=== PATIENT | male | born 1935 | race Caucasian/White ===

== ENCOUNTER 2016-12-15 18:55 | Emergency (ER) | payer MEDICARE ==
[~2016-12-15] VITALS: Ht 162.6 cm; Wt 85.0 kg
[~2016-12-15 18:55] MED LIST: ASPI325T PO; CETI10 PO; CHLO10CA17 PO; CIPR-9 PO; CIPR500T4 PO; DIPH2%T PO; FISH100020 PO; FLAG500T PO; FLUT50SP EACH NARE; GLIP5 PO; HYDR-3533 PO; HYDR12.56 PO; HYDR1CRE TOP; IBUP600T26 PO; LISI40TA PO; METO25 PO; METR-1 PO; MONT10TA2 PO; SIMV80TA PO; SLO-500T2 PO; STOO100C PO; TYLETAB34 PO; VIAG100T PO; VITA500T10 PO
[2016-12-15 18:57] VITALS: BP 167/83; PULSE 90; RESP 20; TEMP 97.3; O2SAT 95
[2016-12-15] MEDS ORDERED: DOXY100C PO (21:09)
[2016-12-15] MEDS ORDERED: ACYC800T PO (21:09)
[2016-12-15] MEDS ORDERED: ACYCLOVIR 800 MG TAB PO ONE (21:15)
[2016-12-15] MEDS ORDERED: DOXYCYCLINE HYCLATE 100 MG CAP PO ONE (21:15)
--- NOTE | 2016-12-15 21:15 | PD ---
HPI Chief Complaint: Bite or Sting Time Seen by Provider: 21:10 Travel History International Travel<30 days: No Contact w/Intl Traveler<30days: No Traveled to known affect area: No History of Present Illness HPI 81-year-old white male presents to emergency department requesting evaluation of painful rash to his right face which she noticed earlier today. He states that he was visiting a friend had fallen asleep. He states that he had woken up pain in his right face. He states that it felt as if he was hit with a pipe. He did notice a spider on his lap. He feels that he may have been bitten by the insect. He has noticed a rash on his right anterior forehead as well as the right taoist region. There is a minimal amount of swelling to his right cheek. He took 50 mg's of Benadryl before coming in. This had occurred several hours ago. He denies any shortness of breath or wheezing. No glossal edema. He denies ever having shingles shot or shingles. He denies any history of MRSA. PFSH Past Medical History Arthritis: No Asthma: No Blood Disorders: No Bipolar Disorder: Yes Anxiety: Yes Depression: No Heart Rhythm Problems: Yes (AFIB) Cancer: Yes (prostate cancer getting Lupron) Cardiac Catheterization: No Cardiovascular Problems: Yes High Cholesterol: Yes Chemotherapy: No Chest Pain: Yes Congestive Heart Failure: No COPD: No Cerebrovascular Accident: No Coronary Artery Disease: Yes Diabetes: Yes Diminished Hearing: No Diverticulitis: Yes Endocrine: No Gastrointestinal Disorders: Yes GERD: No Genitourinary: No Hiatal Hernia: No Hypertension: Yes Immune Disorder: No Kidney Stones: Yes Musculoskeletal: No Neurologic: No Psychiatric: Yes Reproductive: No Respiratory: No Migraines: No Radiation Therapy: No Renal Failure: No Seizures: No Sickle Cell Disease: No Triglycerides - High: Yes Tetanus Vaccination: < 5 Years Past Surgical History Abdominal Surgery: No AICD: No Arteriovenous Shunt: No Cardiac Surgery: No Coronary Artery Bypass Graft: No Ear Surgery: No Endocrine Surgery: No Eye Surgery: No Genitourinary Surgery: Yes (KIDNEY STONES (1990)) Insulin Pump: No Joint Replacement: No Oral Surgery: No Pacemaker: No Thoracic Surgery: No Other Surgery: Yes (PHLEBECTOMY S/P THROMBOPHLEBITIS (1960), HEMORRHOIDECTOMY ( 1957)) Social History Alcohol Use: No Tobacco Use: No Substance Use: No Allergies-Medications (Allergen,Severity, Reaction): Coded Allergies: shellfish derived (Unverified Allergy, Severe, Anaphylaxis, 12/15/16) shrimp (Unverified Allergy, Severe, Swelling, 12/15/16) Reported Meds & Prescriptions Reported Meds & Active Scripts Active Tylenol-Codeine #3 (Acetaminophen-Codeine) 300-30 mg Tab 1-2 Tab PO Q6H PRN Flagyl (Metronidazole) 500 Mg Tab 500 Mg PO BID Cipro (Ciprofloxacin HCl) 500 Mg Tab 500 Mg PO BID Lortab 5-325 mg (Hydrocodone-Acetaminophen) 1 Tab 1 Tab PO Q4H PRN Z.0.iilgg974 Mg 500 Mg Tab 500 Mg PO BID Flagyl (Metronidazole) 500 Mg Tab 500 Mg PO TID Metoprolol Tartrate 25 Mg Tab 12.5 Mg PO Q12 30 Days Reported Z.0.zyrtec 10 Mg Ta1 10 Mg Tab 5 Mg PO DAILY Z.0.aspirin 325 Mg32 325 Mg Tab 325 Mg PO DAILY Z.0.eamwzpkjdfm05 Mg 80 Mg Tab 40 Mg PO HS Z.0.chdayy752 Mg 100 Mg Tab 100 Mg PO DIRECTED PRN Z.0.slo-Qnksbj465 Mg 500 Mg Tab 500 Mg PO DAILY Fluticasone Pr50 Mc1 50 Mcg Spr 2 [place] EACH NARE DAILY Ibuprofen 600 Mg Tab 600 Mg PO TID PRN Glipizide 5 Mg Tab 2.5 Mg PO BID Hydrocortisone (Hydrocortisone (Topical)) 1 % Cre 1 Applic TOP BID PRN Hydrochlorothiazide 12.5 Mg Tab 12.5 Mg PO DAILY Fish Oil ([place]-3 Fatty Acids) 1,000 Mg Cap 3,000 Mg PO DAILY Z.0.fgomjhpxv56 Mg 10 Mg Tab 10 Mg PO HS Jkqhpjy03 Mg 10 Mg Cap 10 Mg PO BID Z.0.wjfvna413 Mg 100 Mg Cap 100 Mg PO BID Z.0.diphenhydramine2 25 Mg Cap 25 Mg PO HS Z.0.vitamin C500 Mg 500 Mg Tab 500 Mg PO DAILY Z.0.yuwkqkak80 Mg 40 Mg Tab 40 Mg PO DAILY Review of Systems Except as stated in HPI: all other systems reviewed are Neg Physical Exam Narrative GENERAL: Well-developed, well-nourished in no acute distress. Nontoxic appearing. HEAD: Normocephalic, patient has a mild area of erythema to the anterior right forehead. There is no vesicles or blisters. There is also another area to his right cheek and right temporal region. These also are mildly erythematous but no vesicular or blisters. There is no fluctuance or pointing.. EYES: Pupils equal round and reactive. Extraocular motions intact. No scleral icterus. No injection or drainage. ENT: TMs clear without erythema. The external auditory canals clear. Nose: clear . Posterior pharynx is pink and moist. No tonsillar edema or exudate. Uvula midline. Airway patent. NECK: Trachea midline.Supple, nontender, moves head freely. No central bony tenderness or spasm. CARDIOVASCULAR: Regular rate and rhythm without murmurs, gallops, or rubs. RESPIRATORY: Clear to auscultation. Breath sounds equal bilaterally. No wheezes , rales, or rhonchi. GASTROINTESTINAL: Abdomen soft, non-tender, nondistended. No hepato-splenomegaly , or palpable masses. No guarding. EXTREMITIES: No clubbing, cyanosis, or edema. No joint tenderness, effusion, or edema noted. BACK: Nontender without deformity or crepitance. No flank tenderness. Neuro: Patient is able to smile and wrinkle his forehead. There is no facial droop. Cranial nerves grossly intact. There is no focal sensory or motor deficit identified. Data Data Last Documented VS Vital Signs Date Time Temp Pulse Resp B/P (MAP) Pulse Ox O2 Delivery O2 Flow Rate FiO2 12/15/16 18:57 97.3 90 20 167/83 (111) 95 Room Air [facility] Medical Decision Making Medical Screen Exam Complete: Yes Emergency Medical Condition: Yes Medical Record Reviewed: Yes Differential Diagnosis MDM: High Differential diagnoses: Abscess, folliculitis, cellulitis, shingles, insect bite Narrative Course I have had a lengthy discussion with the patient regarding my concern for potential early shingles. The patient is also concerned that this might be a insect bite and possible impending infection. I've agreed to treat him with doxycycline but also have given the patient acyclovir. Patient's given doxycycline 100 by mouth and acyclovir 800 [place]'s by mouth. He is instructed to [facility] 1[facility]2 days. This is facial rash Diagnosis Primary Impression: Facial rash Patient Instructions: General Instructions Additional Instructions: Rest. Continue local wound care. May apply cool compresses. Continue to take 25 mg of Benadryl every 6 hours. Monitor urine flow. Benadryl may cause a decrease in urine flow. If this occurs stop immediately. Acyclovir and doxycycline. Recheck with your doctor in the next 1-2 days. Return to the ER for any problems. Med/Other Pt SpecificInfo: Prescription(s) given Scripts Doxycycline Hyclate (Doxycycline Hyclate) 100 Mg Cap 100 MG PO BID for Infection, #14 CAP 0 Refills Prov: Indira Abad DO 12/15/16 Acyclovir (Acyclovir) 800 Mg Tab 800 MG PO 5 TIMES A DAY for Mgmt Viral Infection for 7 Days, TAB 0 Refills Prov: Indira Abad DO 12/15/16 Disposition: 01 DISCHARGE HOME Condition: Stable Aristides [place] Dec 15, 2016 21:15
== END 2016-12-15 21:45 | disposition home or self-care (01) ==
LOC: NEPK 18:55
DX: R21 Rash and other nonspecific skin eruption (principal)
CPT/HCPCS: 99284

== ENCOUNTER 2017-08-03 18:40 | Emergency (ER) | payer OTHER, MEDICARE ==
[~2017-08-03] VITALS: Ht 167.6 cm; Wt 82.0 kg
[~2017-08-03 18:40] MED LIST changes: +ACYC800T PO; -ASPI325T PO; -CETI10 PO; -CHLO10CA17 PO; -CIPR-9 PO; -CIPR500T4 PO; -DIPH2%T PO; +DOXY100C PO; -FISH100020 PO; -FLAG500T PO; -FLUT50SP EACH NARE; -GLIP5 PO; -HYDR-3533 PO; -HYDR12.56 PO; -HYDR1CRE TOP; -IBUP600T26 PO; -LISI40TA PO; -METO25 PO; -METR-1 PO; -MONT10TA2 PO; -SIMV80TA PO; -SLO-500T2 PO; -STOO100C PO; -TYLETAB34 PO; -VIAG100T PO; -VITA500T10 PO
[2017-08-03 19:18] VITALS: BP 151/80; PULSE 94; RESP 18; TEMP 97.6; O2SAT 97
--- NOTE | 2017-08-03 19:56 | PD ---
HPI Chief Complaint: Fall Time Seen by Provider: 19:44 Travel History International Travel<30 days: No Contact w/Intl Traveler<30days: No Traveled to known affect area: No History of Present Illness HPI This patient complains of rib pain. He tripped and fell at home at 1 PM. Duration 7 hours. Severity is moderate. Worse with movement of his torso. No alleviating factors. He hit his left lower rib cage on the tile floor. Denies head injury or head or neck pain. Takes an aspirin daily. PFSH Past Medical History Arthritis: No Asthma: No Blood Disorders: No Bipolar Disorder: Yes Anxiety: Yes Depression: No Heart Rhythm Problems: Yes (AFIB) Cancer: Yes (prostate cancer getting Lupron) Cardiac Catheterization: No Cardiovascular Problems: Yes High Cholesterol: Yes Chemotherapy: No Chest Pain: Yes Congestive Heart Failure: No COPD: No Cerebrovascular Accident: No Coronary Artery Disease: Yes Diabetes: Yes Patient Takes Glucophage: No Diminished Hearing: No Diverticulitis: Yes Endocrine: No Gastrointestinal Disorders: Yes GERD: No Genitourinary: No Headaches: No Hiatal Hernia: No Heparin Induced Thrombocytopen: No Hypertension: Yes Immune Disorder: No Implanted Vascular Access Dvce: No Kidney Stones: Yes Musculoskeletal: No Neurologic: No Psychiatric: Yes Reproductive: No Respiratory: No Migraines: No Radiation Therapy: No Renal Failure: No Seizures: No Sickle Cell Disease: No Triglycerides - High: Yes Tetanus Vaccination: > 5 Years Influenza Vaccination: No Past Surgical History Abdominal Surgery: No AICD: No Arteriovenous Shunt: No Cardiac Surgery: No Coronary Artery Bypass Graft: No Ear Surgery: No Endocrine Surgery: No Eye Surgery: No Genitourinary Surgery: Yes (KIDNEY STONES (1990)) Insulin Pump: No Joint Replacement: No Neurologic Surgery: No Oral Surgery: No Pacemaker: No Thoracic Surgery: No Other Surgery: Yes (PHLEBECTOMY S/P THROMBOPHLEBITIS (1960), HEMORRHOIDECTOMY ( 1956)) Social History Alcohol Use: No Tobacco Use: No Substance Use: No Allergies-Medications (Allergen,Severity, Reaction): Coded Allergies: shellfish derived (Unverified Allergy, Severe, Anaphylaxis, 08/03/17) shrimp (Unverified Allergy, Severe, Swelling, 08/03/17) Reported Meds & Prescriptions Reported Meds & Active Scripts Active Doxycycline Hyclate 100 Mg Cap 100 Mg PO BID Acyclovir 800 Mg Tab 800 Mg PO 5 TIMES A DAY 7 Days Review of Systems General / Constitutional: No: Fever Eyes: No: Visual changes HENT: No: Headaches Cardiovascular: Positive: Chest Pain or Discomfort Respiratory: No: Shortness of Breath Gastrointestinal: No: Abdominal Pain Genitourinary: No: Dysuria Musculoskeletal: No: Pain Skin: No Rash Neurologic: No: Weakness Psychiatric: No: Depression Endocrine: No: Polydipsia Hematologic/Lymphatic: No: Easy Bruising Physical Exam Narrative GENERAL: Well-nourished, well-developed patient in no apparent distress. SKIN: Focused skin assessment reveals no rash and nodules. Skin is Warm and dry. HEAD: Atraumatic. Normocephalic. EYES: Pupils equal and round. No scleral icterus. No injection or drainage. ENT: No nasal bleeding or discharge. Mucous membranes pink and moist. NECK: Trachea midline. No JVD. CARDIOVASCULAR: Regular rate and rhythm. No murmur appreciated. RESPIRATORY: No accessory muscle use. Clear to auscultation. Breath sounds equal bilaterally. GASTROINTESTINAL: Abdomen soft, non-tender, nondistended. Hepatic and splenic margins not palpable. MUSCULOSKELETAL: No obvious deformities. No clubbing. No cyanosis. No edema. There is rib tenderness in the bottom of the rib cage in the left side, midclavicular line. No bruising or crepitus NEUROLOGICAL: Awake and alert. No obvious cranial nerve deficits. Motor grossly within normal limits. Normal speech. PSYCHIATRIC: Appropriate mood and affect; insight and judgment normal. Data Data Last Documented VS Vital Signs Date Time Temp Pulse Resp B/P (MAP) Pulse Ox O2 Delivery O2 Flow Rate FiO2 08/03/17 19:18 97.6 94 18 151/80 (103) 97 Orders Orders Chest, Single Ap (08/03/17 ) [facility] Medical Decision Making Medical Screen Exam Complete: Yes Emergency Medical Condition: Yes Medical Record Reviewed: Yes Differential Diagnosis Rib fracture, pneumothorax, contusion Narrative Course I have reviewed the patient's electronic medical record. I reviewed his chest x-ray which shows no evidence of rib fracture or pneumothorax Offered him pain medication but he declines Diagnosis Primary Impression: Contusion of rib on left side Qualified Codes: S20.212A - Contusion of left front wall of thorax, initial encounter Additional Instructions: The patient was advised to follow up with their physician and return if they worsen. Med/Other Pt SpecificInfo: Other Disposition: 01 DISCHARGE HOME Condition: Stable Paresh Regalado MD Aug 03, 2017 19:56
--- NOTE | 2017-08-03 20:47 | RADRPT ---
EXAM DATE/TIME: 08/03/2017 20:03 [place] COMPARISON: No previous studies available for comparison. INDICATIONS : Chest and rib pain, short of breath. MEDICAL HISTORY : None. SURGICAL HISTORY : None. ENCOUNTER: Initial ACUITY: 1 day PAIN SCORE: 10/10 LOCATION: Left ribs. FINDINGS: A single view of the chest demonstrates cardiomegaly. Minimal basilar atelectasis. No significant eff usion. No pneumothorax. CONCLUSION: 1. Cardiomegaly with minimal basilar atelectasis. No effusion or pneumothorax. Aristides Hilton MD on August 03, 2017 at 20:43 Board Certified Radiologist. This report was verified electronically.
== END 2017-08-03 22:14 | disposition home or self-care (01) ==
LOC: NEPD 18:40
DX: S20.212A Contusion of left front wall of thorax, initial encounter (principal); I48.91 Unspecified atrial fibrillation; E11.9 Type 2 diabetes mellitus without complications; I10 Essential (primary) hypertension; W01.0XXA Fall on same level from slipping, tripping and stumbling without subsequent striking against object, initial encounter; Y92.009 Unspecified place in unspecified non-institutional (private) residence as the place of occurrence of the external cause; Z79.82 Long term (current) use of aspirin
CPT/HCPCS: 71045; 99283

== ENCOUNTER 2018-04-27 20:39 | Inpatient (IN) ==
[2018-04-27] MEDS ORDERED: Nitroglycerin Drip Premix 50 MG/250 ML BOTTLE IV.CONT PRN (20:51)
[2018-04-27] MEDS ORDERED: Morphine Inj 4 MG/ML Vial IV.PUSH ONE (20:51)
[2018-04-27] MEDS ORDERED: Heparin Drip 25,000 UNIT/250 ML BAG IV.CONT PRN (20:54)
[2018-04-27] MEDS ORDERED: Heparin 10,000 UNITS/10 ML Vial (for IV use) IV.PUSH STA (20:54)
--- NOTE | 2018-04-27 21:22 | XR ---
EXAM DATE: 04/27/2018 9:17 PM EST AGE/SEX: 82 years / Male INDICATIONS: Shortness of breath and chest pain. CLINICAL DATA: This is the patient's initial encounter. Patient reports that signs and symptoms have been present for 1 day and indicates a pain score of 6/10. MEDICAL/SURGICAL HISTORY: None. None. COMPARISON: [facility] 08/[place]. . FINDINGS: Mild diffuse interstitial prominence with hazy bilateral lower lobe opacities. Cardiac silhouette is enlarged. Central pulmonary vascularity is indistinct. Remainder of exam is unchanged. CONCLUSION: 1. Cardiomegaly with mild positive fluid balance. 2. Ill-defined bilateral lower lobe airspace disease, presumably atelectasis. Differential considera tions include aspiration and developing pneumonia in the appropriate clinical setting. Electronically signed by: Floyd Reed MD Board Certified Radiologist 04/27/2018 9:21 PM EST
--- NOTE | 2018-04-27 21:30 | ED ---
HPI General Chief Complaint: Arrhythmia / Palpitations Stated Complaint: Chest pain,Evac Time Seen by Provider: 04/27/18 20:48 Source: patient and EMS Mode of arrival: EMS Limitations: no limitations History of Present Illness MD Complaint: Reports shortness of breath Onset (ago): day(s) (2) Severity: moderate Consistency/Duration: constant and other Relieving factors: rest Exacerbating factors: exertion (He is unable to walk more than about 10 feet without dyspnea and fatigue) Known history of: Reports other (History of chronic lung disease but no oxygen dependence.); Denies COPD, asthma and congestive heart failure Associated symptoms: Reports chest pain (Intermittent chest pain) Treatment prior to arrival: Reports oxygen, aspirin and nitroglycerin Related Data Home oxygen amount: none Allergies Allergy/AdvReac Type Severity Reaction Status Date / Time shellfish derived Allergy Severe Anaphylaxis Verified 04/27/18 20:41 shrimp Allergy Severe Swelling Verified 04/27/18 20:41 Review of Systems ROS: all other systems reviewed are negative [facility] Medical History Medical History Anxiety (Acute) Atrial fibrillation (Acute) Cardiomegaly (Acute) Congestive heart failure (CHF) (Acute) DVT (deep venous thrombosis) (Acute) Diabetes type 2, controlled (Acute) High cholesterol (Acute) Hypertension (Acute) Irregular heart beat (Acute) Kidney stones (Acute) Skin cancer (Acute) Surgical History Surgical History H/O hemorrhoidectomy (Acute) H/O lithotripsy (Acute) History of tonsillectomy (Acute) Social History Social History Substance History: No History of Abuse Smoking Status: Former smoker Tobacco Type: Cigarettes How Often Do You Have a Drink Containing Alcohol: Never Recent Travel in [facility] within the Last 8 Weeks: No Recent Out of Country Travel within the Last 8 Weeks: No Immunization History Tetanus Immunization: Unsure Exam Const General: cooperative, healthy appearing, comfortable, no acute distress, well developed and well groomed Orientation: alert, awake and oriented x3 HENMT Head: normal to inspection, normocephalic and atraumatic Eyes Alignment and Position: alignment normal Conjunctivae: conjunctivae normal Sclera: sclerae normal EOM: EOM intact bilaterally Neck Neck: normal visual inspection and full ROM Chest Chest: normal inspection of the chest Resp Effort & Inspection: normal respiratory effort and able to speak in complete sentences Auscultation: clear to auscultation bilaterally Cardio Rate: regular rate Rhythm: abnormal rhythm GI Inspection: normal to inspection Palpation: soft Back/Spine/Pelvis Cervical Spine: cervical ROM normal Thoracic/Lumbar Spine: thoraco-lumbar ROM normal Skin General: no rashes or lesions noted and turgor normal Neuro General: alert, awake, oriented x3, moves all extremities and CN's II-XI intact bilaterally Extrem General: normal to inspection and full ROM Psych Appearance: grossly normal Mental Status: mental status grossly normal Speech and Movement: speech and movement normal Mood: congruent mood Affect: normal affect Attitude: cooperative Thought Process: normal Thought Content: normal Judgment: judgment good Course Consultations Consultation #1: Dr. Coreas, cardiology Time: 20:51 Initial Documented Vital Signs Temperature 98 F 04/27/18 20:42 Pulse Rate 91 H 04/27/18 20:42 Respiratory Rate 18 04/27/18 20:42 Blood Pressure 142/82 H 04/27/18 20:42 Pulse Oximetry 97 04/27/18 20:42 Last Documented Vital Signs Temperature 98 F 04/27/18 20:42 Pulse Rate 96 H 04/27/18 21:01 Respiratory Rate 16 04/27/18 21:01 Blood Pressure 131/84 04/27/18 21:01 Pulse Oximetry 97 04/27/18 21:00 Critical Care Time Critical Care Time: Yes Total Critical Care Time: 45 Attestation: Time to perform other separately billable procedures was not included in the critical care time. My time did not include minutes spent treating any other patients simultaneously or on activities that did not directly contribute to the patient's treatment. The services I provided to this patient were to treat and/or prevent clinically significant deterioration due to chest pain shortness of breath, rule out ACS. I provided critical care services requiring my management, as noted below: Chart data review, documentation time, medication orders and management, vital sign assessments/reviewing monitor data, ordering and reviewing lab tests, ordering and interpreting/reviewing x-rays and diagnostic studies, care of the patient and discussion of the patient with the admitting physicians Medical Decision Making MDM Narrative Medical decision making narrative: This patient presents to us via [facility] with a chief complaint of mainly shortness of breath. He especially has dyspnea on exertion. He has also had some intermittent chest pain. This is been present for about 2 days. His EKG per EMS was concerning for a STEMI. They treated him with aspirin 324 mg orally, oxygen and 1 spray of nitroglycerin. The patient reports that his chest pain or shortness of breath are improved with this treatment. Exam is remarkable only for atrial fibrillation with a controlled rate. The case was immediately discussed with the lens grinder. He recommended a nitroglycerin drip and heparinization. The patient is to be kept n.p.o. after midnight for cardiac catheterization tomorrow. The patient remains pain-free. After seeing his initial troponin, I informed Dr. Coreas. No change in treatment for tonight. He still plans to cath the patient in the morning. Medical Screen Exam Complete: Yes Emergency Medical Condition: Yes Differential Diagnosis Differential Diagnosis: Differential diagnosis of chest pain includes but is not limited to musculoskeletal pain, pulmonary embolism, acute coronary syndrome , pneumonia, pleurisy Lab Data Lab results reviewed: Yes I reviewed the patient's lab results. Result diagrams: 04/27/18 21:25 04/27/18 21:25 Lab Results 04/27/18 04/27/18 04/27/18 Range/Units 21:25 21:25 21:25 WBC 7.2 (4.0-11.0) th/mm3 RBC 4.32 L (4.50-5.90) mil/mm3 Hgb 12.8 L (13.0-17.0) gm/dL Hct 37.7 L (39.0-51.0) % MCV 87.4 (80.0-100.0) fL MCH 29.5 (27.0-34.0) pg MCHC 33.8 (32.0-36.0) % RDW 14.1 (11.6-17.2) % Plt Count 217 (150-450) th/mm3 MPV 7.6 (7.0-11.0) fL Neut % (Auto) 71.5 H (16.0-70.0) % Lymph % (Auto) 18.0 (9.0-44.0) % [place] % (Auto) 8.4 H (0.0-8.0) % Eos % (Auto) 1.5 (0.0-4.0) % Baso % (Auto) 0.6 (0.0-2.0) % Neut # (Auto) 5.2 (1.8-7.7) th/mm3 Lymph # (Auto) 1.3 (1.0-4.8) th/mm3 [place] # (Auto) 0.6 (0.0-0.9) th/mm3 Eos # (Auto) 0.1 (0.0-0.4) th/mm3 Baso # (Auto) 0.0 (0.0-0.2) th/mm3 WBC Differential . Differential Comment Auto diff final PT 12.2 H (9.8-11.6) sec INR 1.2 Ratio APTT 29.4 (23.4-31.7) sec Sodium 132 L (136-145) meq/L Potassium 4.3 (3.5-5.1) meq/L Chloride 101 (98-107) meq/L Carbon Dioxide 24.6 (21.0-32.0) meq/L Anion Gap 6 (5-15) meq/L BUN 15 (7-18) mg/dL Creatinine 0.96 (0.60-1.30) mg/dL Estimated GFR 75 L (>89) mL/min Random Glucose 145 H (74-106) mg/dL Calcium 8.1 L (8.5-10.1) mg/dL Total Bilirubin 0.4 (0.2-1.0) mg/dL AST 94 H (15-37) U/L ALT 80 H (12-78) U/L Alkaline Phosphatase 68 (45-117) U/L Troponin I 4.34 H* (0.02-0.05) ng/mL Total Protein 7.1 (6.4-8.2) g/dL Albumin 3.5 (3.4-5.0) g/dL 04/27/18 Range/Units 21:25 WBC (4.0-11.0) th/mm3 RBC (4.50-5.90) mil/mm3 Hgb (13.0-17.0) gm/dL Hct (39.0-51.0) % MCV (80.0-100.0) fL MCH (27.0-34.0) pg MCHC (32.0-36.0) % RDW (11.6-17.2) % Plt Count (150-450) th/mm3 MPV (7.0-11.0) fL Neut % (Auto) (16.0-70.0) % Lymph % (Auto) (9.0-44.0) % [place] % (Auto) (0.0-8.0) % Eos % (Auto) (0.0-4.0) % Baso % (Auto) (0.0-2.0) % Neut # (Auto) (1.8-7.7) th/mm3 Lymph # (Auto) (1.0-4.8) th/mm3 [place] # (Auto) (0.0-0.9) th/mm3 Eos # (Auto) (0.0-0.4) th/mm3 Baso # (Auto) (0.0-0.2) th/mm3 WBC Differential Differential Comment PT (9.8-11.6) sec INR Ratio APTT (23.4-31.7) sec Sodium (136-145) meq/L Potassium (3.5-5.1) meq/L Chloride (98-107) meq/L Carbon Dioxide (21.0-32.0) meq/L Anion Gap (5-15) meq/L BUN (7-18) mg/dL Creatinine (0.60-1.30) mg/dL Estimated GFR (>89) mL/min Random Glucose (74-106) mg/dL Calcium (8.5-10.1) mg/dL Total Bilirubin (0.2-1.0) mg/dL AST (15-37) U/L ALT (12-78) U/L Alkaline Phosphatase (45-117) U/L Troponin I 4.52 H* (0.02-0.05) ng/mL Total Protein (6.4-8.2) g/dL Albumin (3.4-5.0) g/dL Imaging Data Radiologist's impression: Chest X-Ray 04/27/18 20:53 CONCLUSION: 1. Cardiomegaly with mild positive fluid balance. 2. Ill-defined bilateral lower lobe airspace disease, presumably atelectasis. Differential considerations include aspiration and developing pneumonia in the appropriate clinical setting. ECG Data EKG Prior to Arrival: Yes Attestation: I personally reviewed and interpreted this ECG as follows: (EKG shows atrial fibrillation with a controlled rate at about 100. He has ST segment depression in all of the anterolateral leads. He has some ST segment elevation in aVR.) Discharge Plan Discharge Disposition Patient Disposition: ED Admit(ED Internal Use Only) Discharge Order Discharge Orders: ED Use Only Admit Order (Routine); Ordered 04/27/18 Ordered By: Janessa Christensen Discharge Details Diagnosis: Acute non-ST elevation myocardial infarction (NSTEMI) Physicians Team ED Provider: Janessa Christensen Primary Care Provider: [facility],Physician [facility] ED Status: Pending Admission
[2018-04-27 21:34] LABS: Baso % (Auto) 0.6 % (0.0-2.0); Eos # (Auto) 0.1 th/mm3 (0.0-0.4); Eos % (Auto) 1.5 % (0.0-4.0); Hematocrit 37.7 % (39.0-51.0); Hemoglobin 12.8 gm/dL (13.0-17.0); Lymph # (Auto) 1.3 th/mm3 (1.0-4.8); Mean Corpuscular HGB Conc 33.8 % (32.0-36.0); Mean Corpuscular Hemoglobin 29.5 pg (27.0-34.0); Mean Corpuscular Volume 87.4 fL (80.0-100.0); Mean Platelet Volume 7.6 fL (7.0-11.0); Mono # (Auto) 0.6 th/mm3 (0.0-0.9); Mono % (Auto) 8.4 % (0.0-8.0); Neut # (Auto) 5.2 th/mm3 (1.8-7.7); Neut % (Auto) 71.5 % (16.0-70.0); Platelet Count 217 th/mm3 (150-450); Red Blood Count 4.32 mil/mm3 (4.50-5.90); Red Cell Distribution Width 14.1 % (11.6-17.2); White Blood Count 7.2 th/mm3 (4.0-11.0)
[2018-04-27 21:43] LABS: Activated Partial Thrombo Time 29.4 sec (23.4-31.7); INR 1.2 Ratio; Prothrombin Time 12.2 sec (9.8-11.6)
[2018-04-27 21:53] LABS: Albumin 3.5 g/dL (3.4-5.0); Anion Gap 6 meq/L (5-15); Aspartate Aminotransferase 94 U/L (15-37); Blood Urea Nitrogen 15 mg/dL (7-18); Calcium 8.1 mg/dL (8.5-10.1); Carbon Dioxide 24.6 meq/L (21.0-32.0); Chloride 101 meq/L (98-107); Glomerular Filtration Rate 75 mL/min (>89); Glucose,Random 145 mg/dL (74-106); Potassium 4.3 meq/L (3.5-5.1); Sodium 132 meq/L (136-145)
[2018-04-27 21:54] LABS: Alanine Aminotransferase 80 U/L (12-78)
[2018-04-27 21:57] LABS: Alkaline Phosphatase 68 U/L (45-117); Total Protein 7.1 g/dL (6.4-8.2)
[2018-04-27 22:06] LABS: Troponin I 4.34 ng/mL (0.02-0.05)
[2018-04-27] MEDS ORDERED: Acetaminophen 325 MG Tablet PO PRN (22:28)
[2018-04-28] MEDS ORDERED: Heparin 10,000 UNITS/10 ML Vial (for IV use) IV.PUSH PRN (02:55)
--- NOTE | 2018-04-28 04:19 | P.HPIM ---
History of Present Illness Primary Care Physician: [facility] Chief complaint: Shortness of breath History of presenting complaint: History from patient, ER physician communication, and review of medical records. Patient reported that he came to the hospital because he has been short of breath for the past few days. He stated he went to the [place] for [place]. He then went on talking about how his heart rate was greater than 100 and usually it would be between 70-80. He thinks that his metoprolol dose needs to be increased from 12.5-25. However, upon further specific questioning, patient states that he has been feeling very congested. He felt his heart was pinching for past few weeks. He stated he could not walk as much as he used to and doing grocery shopping has been quite difficult lately. Also report of associated cough with whitish mucus for the past 2-1/2 months. However denies any peripheral edema. Reports of diarrhea for the past 3 days but also admits to taking Metamucil and also states that it is resolved none. Denies any nausea. Denies any fever. Denies any hematemesis/hematochezia/melena/hematuria. Denies any urinary burning or pain on urination or frequent urination. Denies any syncope/dizziness/falls. In the emergency room, patient's workup revealed elevated troponin consistent with non-ST elevation ME. Patient's case was discussed with ob/gyn on-call by ER physician. Patient was started on nitro drip and heparin drip in ER. Past medical history: Hypertension Diabetes Denies prior history of CAD. Anxiety History of some venous clot versus procedure for which he had to take Coumadin while he was in the service. 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 Also has history of prior melanoma in right ear, chest. History of renal stones Past surgical history: Melanoma resections Renal stone surgery Hemorrhoidectomy in 1956 Social history: Denies alcohol abuse/drug abuse. Used to smoke cigarettes quit in 1974. Lives alone. Family history: Mother from [place] at age 6868 years old. Inpatient Certification Inpatient Certification: I certify that the inpatient services were ordered in accordance with Medicare regulations governing the order. This includes certification that hospital inpatient services are reasonable and necessary and in the case of services not specified as inpatient-only under 42 CFR 419.22(n), that they are appropriately provided as inpatient services in accordance to with the 2-midnight benchmark under 43 CFR 412.3(e) Estimated Total Length of Stay (Days): 4 Plans for Post Hospital Care: Not yet determined [facility] Medical History Medical History Anxiety (Acute) Atrial fibrillation (Acute) Cardiomegaly (Acute) Congestive heart failure (CHF) (Acute) DVT (deep venous thrombosis) (Acute) Diabetes type 2, controlled (Acute) High cholesterol (Acute) Hypertension (Acute) Irregular heart beat (Acute) Kidney stones (Acute) Skin cancer (Acute) Surgical History Surgical History H/O hemorrhoidectomy (Acute) H/O lithotripsy (Acute) History of tonsillectomy (Acute) Social History Social History Substance History: No History of Abuse Second Hand Smoke Exposure: No Smoking Status: Former smoker Tobacco Type: Cigarettes How Often Do You Have a Drink Containing Alcohol: Never Recent Travel in [facility] [place] within the Last 8 Weeks: No Recent Out of Country Travel within the Last 8 Weeks: No Immunization History Tetanus Immunization: Unsure Medications and Allergies Allergies Allergy/AdvReac Type Severity Reaction Status Date / Time shellfish derived Allergy Severe Anaphylaxis Verified 04/27/18 20:41 shrimp Allergy Severe Swelling Verified 04/27/18 20:41 Home Medications Medication Instructions Recorded Confirmed Type aspirin 325 mg PO DAILY 04/27/18 04/27/18 History cetirizine 10 mg PO DAILY 04/27/18 04/27/18 History chlordiazepoxide HCl 04/27/18 History diphenhydramine HCl [Benadryl] 04/27/18 History docusate sodium 100 mg PO DAILY 04/27/18 04/27/18 History fluticasone 2 spray INTRANASAL DAILY 04/27/18 04/27/18 History glipizide 5 mg PO BID 04/27/18 04/27/18 History hydrochlorothiazide 12.5 mg PO DAILY 04/27/18 04/27/18 History lisinopril 40 mg PO DAILY 04/27/18 04/27/18 History metoprolol tartrate 25 mg PO BID 04/27/18 04/27/18 History montelukast 10 mg PO QPM 04/27/18 04/27/18 History simvastatin 80 mg PO QPM 04/27/18 04/27/18 History Active Medications: Active Medications Acetaminophen (Tylenol) 650 mg PO Q4H PRN PRN Reason: Temp > 100.4 Aspirin (Ecotrin) 325 mg PO DAILY [facility] Cetirizine HCl (Zyrtec) 10 mg PO DAILY [facility] Docusate Sodium (Colace) 100 mg PO DAILY [facility] Heparin Sodium (Porcine) (Heparin Inj) 2,500 units IV.PUSH UNSCH PRN PRN Reason: aPTT 25-39 Hydrochlorothiazide (Microzide) 12.5 mg PO DAILY [facility] Heparin Sodium/Dextrose (Heparin/D5w 25,000 U/250 Ml) 25,000 unit in 250 mls @ 0 mls/hr IV.CONT TITRATE PRN; Protocol PRN Reason: Per Protocol Last Admin: 04/27/18 22:12 Dose: 1,000 units/hr, 10 mls/hr Nitroglycerin/Dextrose (Nitroglycerin Drip Premix) 50 mg in 250 mls @ 1.5 mls/ hr IV.CONT TITRATE PRN; Protocol PRN Reason: See Protocol Last Admin: 04/27/18 21:22 Dose: 5 mcg/min, 1.5 mls/hr Metoprolol Tartrate (Lopressor) 25 mg PO BID [facility] Montelukast Sodium (Singulair) 10 mg PO QPM [facility] Non-Formulary Medication (Lisinopril [Lisinopril]) 40 mg PO DAILY [facility] Non-Formulary Medication (Simvastatin [Simvastatin]) 80 mg PO QPM [facility] Ondansetron HCl (Zofran Inj) 4 mg IV.PUSH Q6H PRN PRN Reason: NAUSEA OR VOMITING Sodium Chloride (Ns Flush) 2 ml IV.FLUSH UNSCH PRN PRN Reason: FLUSH AFTER USING IV ACCESS Sodium Chloride (Ns Flush) 2 ml IV.FLUSH BID [facility] Sodium Chloride (Ns Flush) 2 ml IV.FLUSH PRN PRN PRN Reason: FLUSH AFTER USING IV ACCESS Physical Exam Vital signs: Last Vital Signs Temp 97.6 F 04/28/18 03:00 Pulse 94 H 04/28/18 03:00 Resp 18 04/28/18 03:00 BP 100/57 L 04/28/18 03:00 Pulse Ox 98 04/28/18 03:00 Intake & Output 04/25/18 04/26/18 04/27/18 04/28/18 06:59 06:59 06:59 06:59 Weight 86.183 kg GENERAL: This is a well-nourished, well-developed patient, in no apparent distress. CARDIOVASCULAR: Regular rate and rhythm without murmurs, gallops, or rubs. RESPIRATORY: bilateral coarse crepitations at the bases. GASTROINTESTINAL: Abdomen soft, non-tender, nondistended. Normal active bowel sounds MUSCULOSKELETAL: Extremities without clubbing, cyanosis, or edema. NEURO: Alert & Oriented x4 to person, place, time, situation. Moves all ext x4 Results Labs CBC & Chem 7: 04/28/18 06:11 04/28/18 06:11 Imaging Impressions Chest X-Ray 04/27/18 20:53 CONCLUSION: 1. Cardiomegaly with mild positive fluid balance. 2. Ill-defined bilateral lower lobe airspace disease, presumably atelectasis. Differential considerations include aspiration and developing pneumonia in the appropriate clinical setting. Caprini VTE Risk Assessment Caprini VTE Risk Assessment: Moderate/High Risk (score >= 2) Caprini Risk Assessment Model: Point Value = 1 Point Value = 2 Point Value = 3 Point Value = 5 Age 41-60 Minor surgery BMI > 25 kg/m2 Swollen legs Varicose veins or History of unexplained or recurrent spontaneous Oral contraceptives or hormone replacement Sepsis (< 1 month) Serious lung disease, including pneumonia (< 1 month) Abnormal pulmonary function Acute myocardial infarction Congestive heart failure (< 1 month) History of inflammatory bowel disease Medical patient at bed rest Age 61-74 Arthroscopic surgery Major open surgery (> 45 min) Laparoscopic surgery (> 45 min) Malignancy Confined to bed (> 72 hours) Immobilizing plaster cast Central venous access Age >= 75 History of VTE Family history of VTE Factor V Leiden Prothrombin [id number] Lupus anticoagulant Anticardiolipin antibodies Elevated serum homocysteine Heparin-induced thrombocytopenia Other congenital or acquired thrombophilia Stroke (< 1 month) Elective arthroplasty Hip, pelvis, or leg fracture Acute spinal cord injury (< 1 month) Prophylaxis Regimen: Total Risk Factor Score Risk Level Prophylaxis Regimen 0-1 Low Early ambulation 2 Moderate Order ONE of the following: *Sequential Compression Device (SCD) *Heparin 5000 units SQ BID 3-4 Higher Order ONE of the following medications: *Heparin 5000 units SQ TID *Enoxaparin/Lovenox 40 mg SQ daily (WT < 150 kg, CrCl > 30 mL/min) *Enoxaparin/Lovenox 30 mg SQ daily (WT < 150 kg, CrCl > 10-29 mL/min) *Enoxaparin/Lovenox 30 mg SQ BID (WT < 150 kg, CrCl > 30 mL/min) AND/OR *Sequential Compression Device (SCD) 5 or more Highest Order ONE of the following medications: *Heparin 5000 units SQ TID (Preferred with Epidurals) *Enoxaparin/Lovenox 40 mg SQ daily (WT < 150 kg, CrCl > 30 mL/min) *Enoxaparin/Lovenox 30 mg SQ daily (WT < 150 kg, CrCl > 10-29 mL/min) *Enoxaparin/Lovenox 30 mg SQ BID (WT < 150 kg, CrCl > 30 mL/min) AND *Sequential Compression Device (SCD) Assessment and Plan Plan Impression: Non-ST elevation [place] Suspect New-onset CHF likely secondary to ME. With report of decreased exercise tolerance, dyspnea on exertion, heart "pinching" on exertion Hypertension Diabetes Denies prior history of CAD. Anxiety History of some venous clot versus procedure for which he had to take Coumadin while he was in the service. 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 Also has history of prior melanoma in right ear, chest. History of renal stones Plan: Serial cardiac enzymes and EKGs. Continue heparin drip. Continue nitroglycerin drip. Aspirin 325 mg p.o. daily. Cardiology was consulted. Give Lasix 20 mg IV 1 dose now. Continue home dose of hydrochlorothiazide for now. May need to monitor patient' s respiratory status and need further diuresis instead of hydrochlorothiazide. Echocardiogram in a.m. Resume home meds. However hold oral hypoglycemic medications and insulin due to n.p.o. status. We will monitor fingersticks. DVT is on heparin. H&P: Quality VTE Deep Vein Thrombosis/Pulmonary Embolism Present on Admission: No
[2018-04-28 04:33] LABS: Hematocrit 35.3 % (39.0-51.0); Hemoglobin 12.1 gm/dL (13.0-17.0); Mean Corpuscular HGB Conc 34.2 % (32.0-36.0); Mean Corpuscular Hemoglobin 29.9 pg (27.0-34.0); Mean Corpuscular Volume 87.4 fL (80.0-100.0); Mean Platelet Volume 7.7 fL (7.0-11.0); Platelet Count 176 th/mm3 (150-450); Red Blood Count 4.04 mil/mm3 (4.50-5.90); Red Cell Distribution Width 14.2 % (11.6-17.2); White Blood Count 5.8 th/mm3 (4.0-11.0)
[2018-04-28] MEDS ORDERED: Metoprolol Tartrate 25 MG Tablet PO SCH (05:00)
[2018-04-28 06:25] LABS: Baso # (Auto) 0.1 th/mm3 (0.0-0.2); Baso % (Auto) 0.8 % (0.0-2.0); Eos # (Auto) 0.1 th/mm3 (0.0-0.4); Eos % (Auto) 1.3 % (0.0-4.0); Hematocrit 41.1 % (39.0-51.0); Hemoglobin 14.1 gm/dL (13.0-17.0); Lymph # (Auto) 1.7 th/mm3 (1.0-4.8); Lymph % (Auto) 21.5 % (9.0-44.0); Mean Corpuscular HGB Conc 34.2 % (32.0-36.0); Mean Corpuscular Volume 87.7 fL (80.0-100.0); Mean Platelet Volume 7.5 fL (7.0-11.0); Mono # (Auto) 0.6 th/mm3 (0.0-0.9); Mono % (Auto) 7.5 % (0.0-8.0); Neut # (Auto) 5.5 th/mm3 (1.8-7.7); Neut % (Auto) 68.9 % (16.0-70.0); Platelet Count 210 th/mm3 (150-450); Red Blood Count 4.68 mil/mm3 (4.50-5.90); Red Cell Distribution Width 14.5 % (11.6-17.2); White Blood Count 7.9 th/mm3 (4.0-11.0)
[2018-04-28 06:56] LABS: Calcium 8.8 mg/dL (8.5-10.1); Carbon Dioxide 28.4 meq/L (21.0-32.0); Potassium 3.8 meq/L (3.5-5.1)
[2018-04-28 07:06] LABS: Troponin I 4.13 ng/mL (0.02-0.05)
--- NOTE | 2018-04-28 08:35 | P.CONCA ---
History of Present Illness Service: cardiology Consult date: 04/28/18 Reason for Consult: NSTEMI Primary Care Provider: [facility] Chief Complaint: dyspnea History of Present Illness: This is a pleasant 82 yo M with atrial fibrillation (diagnosed 3 years ago has refused anticoagulation), DMII, HTN, HLD who is managed [facility] presented yesterday with progressive dyspnea x 3 days. He reports shortness of breath starting 3 months ago after PFTs were performed at the [facility] and since then has been feeling more tired and dyspneic. He recently returned from a trip to [place] and notes a productive cough and SOB with walking short distances. Prior to symptom onset he was very active and exercised on a daily basis. He does note a sensation of "skipped beats" intermittently but denies edema, orthopnea or syncope. EKG shows atrial fibrillation with HR in the 90s with Twave inversions V2-V5 and inferior leads. Troponin elevation 4.3 --> 4.5--> 4.1. CXR shows evidence of fluid overload, lasix 40mg injection given this morning with good diuresis. NSTEMI- will plan for cardiac catheterization this morning. keep npo no chest pain CHF- 2D echo ordered to assess LVEF will require additional diuresis afib- rate control strategy. cont metoprolol CHADS-Vasc score is 5 and recommend addition of anticoagulant for stroke prevention. discussed with patient and he is amenable to starting med when appropriate. Review of Systems All other systems reviewed negative except as stated in HPI PMFSH - History History Provided By: Patient - Medical History Medical History: Medical History (Last Reviewed 04/27/18 @ 21:25 by Janessa Christensen) Anxiety Atrial fibrillation Cardiomegaly Congestive heart failure (CHF) DVT (deep venous thrombosis) Diabetes type 2, controlled High cholesterol Hypertension Irregular heart beat Kidney stones Skin cancer - Surgical History Surgical History: Surgical History (Last Reviewed 04/27/18 @ 21:25 by Janessa Christensen) H/O hemorrhoidectomy H/O lithotripsy History of tonsillectomy - Tobacco History Second Hand Smoke Exposure: No Tobacco Use In Past 30 Days: No Smoking Status: Former smoker Tobacco Type: Cigarettes - Alcohol History How Often Do You Have a Drink Containing Alcohol: Never - Substance Use History Substance History: No History of Abuse - Travel History Recent Travel in the [facility] Within the Last 8 Weeks: No Recent Travel Out of the Country Within the Last 8 Weeks: No - Immunization History Tetanus Immunization: Unsure Medications and Allergies Active Medications: Active Medications Acetaminophen (Tylenol) 650 mg PO Q4H PRN PRN Reason: Temp > 100.4 Aspirin (Ecotrin) 325 mg PO DAILY [facility] Cetirizine HCl (Zyrtec) 10 mg PO DAILY [facility] Docusate Sodium (Colace) 100 mg PO DAILY [facility] Heparin Sodium (Porcine) (Heparin Inj) 2,500 units IV.PUSH UNSCH PRN PRN Reason: aPTT 25-39 Hydrochlorothiazide (Microzide) 12.5 mg PO DAILY [facility] Heparin Sodium/Dextrose (Heparin/D5w 25,000 U/250 Ml) 25,000 unit in 250 mls @ 0 mls/hr IV.CONT TITRATE PRN; Protocol PRN Reason: Per Protocol Last Admin: 04/27/18 22:12 Dose: 1,000 units/hr, 10 mls/hr Nitroglycerin/Dextrose (Nitroglycerin Drip Premix) 50 mg in 250 mls @ 1.5 mls/ hr IV.CONT TITRATE PRN; Protocol PRN Reason: See Protocol Last Admin: 04/27/18 21:22 Dose: 5 mcg/min, 1.5 mls/hr Metoprolol Tartrate (Lopressor) 25 mg PO BID [facility] Montelukast Sodium (Singulair) 10 mg PO QPM [facility] Non-Formulary Medication (Lisinopril [Lisinopril]) 40 mg PO DAILY [facility] Non-Formulary Medication (Simvastatin [Simvastatin]) 80 mg PO QPM [facility] Ondansetron HCl (Zofran Inj) 4 mg IV.PUSH Q6H PRN PRN Reason: NAUSEA OR VOMITING Sodium Chloride (Ns Flush) 2 ml IV.FLUSH UNSCH PRN PRN Reason: FLUSH AFTER USING IV ACCESS Sodium Chloride (Ns Flush) 2 ml IV.FLUSH BID [facility] Sodium Chloride (Ns Flush) 2 ml IV.FLUSH PRN PRN PRN Reason: FLUSH AFTER USING IV ACCESS Allergies Allergy/AdvReac Type Severity Reaction Status Date / Time shellfish derived Allergy Severe Anaphylaxis Verified 04/27/18 20:41 shrimp Allergy Severe Swelling Verified 04/27/18 20:41 Home Medications Medication Instructions Recorded Confirmed Type aspirin 325 mg PO DAILY 04/27/18 04/27/18 History cetirizine 10 mg PO DAILY 04/27/18 04/27/18 History chlordiazepoxide HCl 04/27/18 History diphenhydramine HCl [Benadryl] 04/27/18 History docusate sodium 100 mg PO DAILY 04/27/18 04/27/18 History fluticasone 2 spray INTRANASAL DAILY 04/27/18 04/27/18 History glipizide 5 mg PO BID 04/27/18 04/27/18 History hydrochlorothiazide 12.5 mg PO DAILY 04/27/18 04/27/18 History lisinopril 40 mg PO DAILY 04/27/18 04/27/18 History metoprolol tartrate 25 mg PO BID 04/27/18 04/27/18 History montelukast 10 mg PO QPM 04/27/18 04/27/18 History simvastatin 80 mg PO QPM 04/27/18 04/27/18 History Exam Vital signs: Vital Signs 04/27/18 20:42 04/27/18 21:00 04/27/18 21:01 Temperature 98 F Pulse Rate 91 H 83 96 H Respiratory Rate 18 16 Blood Pressure 142/82 H 131/84 Pulse Oximetry 97 97 04/27/18 23:00 04/28/18 00:00 04/28/18 01:00 Temperature Pulse Rate 98 H 84 90 Respiratory Rate Blood Pressure Pulse Oximetry 04/28/18 02:00 04/28/18 03:00 04/28/18 04:00 Temperature 97.6 F Pulse Rate 84 94 H 90 Respiratory Rate 18 Blood Pressure 100/57 L Pulse Oximetry 98 04/28/18 05:00 04/28/18 06:00 04/28/18 07:00 Temperature 97.8 F Pulse Rate 94 H 95 H 104 H Respiratory Rate 18 Blood Pressure 110/74 Pulse Oximetry 94 L 04/28/18 08:00 Temperature Pulse Rate Respiratory Rate Blood Pressure Pulse Oximetry 94 L Intake & Output 04/27/18 04/28/18 04/28/18 18:59 06:59 18:59 Output Total 1075 / 1075 Balance -1075 / -1075 Weight 84.3 kg Output: Urine 1075 / 1075 Narrative: GENERAL: SKIN: Warm and dry. HEAD: Normocephalic. EYES: No scleral icterus. No injection or drainage. NECK: Supple, trachea midline. No JVD or lymphadenopathy. CARDIOVASCULAR: irregular rate and rhythm without murmurs, gallops, or rubs. RESPIRATORY: decreased breaths sounds to bilateral bases. No accessory muscle use. GASTROINTESTINAL: Abdomen soft, non-tender, nondistended. MUSCULOSKELETAL: No cyanosis, or edema. Results 04/28/18 06:11 04/28/18 06:11 Cardiac Enzymes 04/27/18 04/27/18 04/28/18 Range/Units 21:25 21:25 03:40 AST 94 H (15-37) U/L Troponin I 4.34 H* 4.52 H* 4.20 H* (0.02-0.05) ng/mL 04/28/18 Range/Units 06:11 AST (15-37) U/L Troponin I 4.13 H* (0.02-0.05) ng/mL Coagulation 04/27/18 04/28/18 Range/Units 21:25 03:40 PT 12.2 H (9.8-11.6) sec APTT 29.4 57.2 H D (23.4-31.7) sec CBC 04/27/18 04/28/18 04/28/18 Range/Units 21:25 03:40 06:11 WBC 7.2 5.8 7.9 (4.0-11.0) th/mm3 RBC 4.32 L 4.04 L 4.68 (4.50-5.90) mil/mm3 Hgb 12.8 L 12.1 L 14.1 D (13.0-17.0) gm/dL Hct 37.7 L 35.3 L 41.1 (39.0-51.0) % Plt Count 217 176 210 (150-450) th/mm3 Neut # (Auto) 5.2 5.5 (1.8-7.7) th/mm3 Lymph # (Auto) 1.3 1.7 (1.0-4.8) th/mm3 [place] # (Auto) 0.6 0.6 (0.0-0.9) th/mm3 Eos # (Auto) 0.1 0.1 (0.0-0.4) th/mm3 Baso # (Auto) 0.0 0.1 (0.0-0.2) th/mm3 Comprehensive Metabolic Panel 04/27/18 04/28/18 Range/Units 21:25 06:11 Sodium 132 L 135 L (136-145) meq/L Potassium 4.3 3.8 (3.5-5.1) meq/L Chloride 101 100 (98-107) meq/L Carbon Dioxide 24.6 28.4 (21.0-32.0) meq/L BUN 15 13 (7-18) mg/dL Creatinine 0.96 0.88 (0.60-1.30) mg/dL Calcium 8.1 L 8.8 (8.5-10.1) mg/dL AST 94 H (15-37) U/L ALT 80 H (12-78) U/L Alkaline Phosphatase 68 (45-117) U/L Total Protein 7.1 (6.4-8.2) g/dL Albumin 3.5 (3.4-5.0) g/dL Intake and Output 04/27/18 04/28/18 04/28/18 22:59 06:59 14:59 Output Total 1075 / 1075 Balance -1075 / -1075 Output: Urine 1075 / 1075 Other: Weight 86.183 kg 84.3 kg - Imaging and Cardiology Imaging: Impressions Chest X-Ray 04/27/18 20:53 CONCLUSION: 1. Cardiomegaly with mild positive fluid balance. 2. Ill-defined bilateral lower lobe airspace disease, presumably atelectasis. Differential considerations include aspiration and developing pneumonia in the appropriate clinical setting.
[2018-04-28] MEDS: Metoprolol Tartrate 25 MG Tablet PO SCH ×2 (08:37→21:07)
[2018-04-28] MEDS: Docusate Sodium 100 MG Capsule PO SCH (08:37)
[2018-04-28] MEDS ORDERED: Dextrose 50% in Water 50 ML Vial IV.PUSH PRN ×3 (08:52→15:54)
[2018-04-28] MEDS ORDERED: Heparin 10,000 UNITS/10 ML Vial (for IV use) ONE (09:43)
[2018-04-28] MEDS ORDERED: Famotidine PF Inj 20 MG/2 ML Vial ONE (09:43)
[2018-04-28] MEDS ORDERED: MethylPREDNISolone Sod Succinate Inj 125 MG/2 ML Vial ONE (09:43)
[2018-04-28] MEDS ORDERED: Heparin/NS PF Inj 1,000 ML ONE (09:43)
[2018-04-28] MEDS ORDERED: Famotidine PF Inj 20 MG/2 ML Vial IV.PUSH ONE (09:52)
[2018-04-28] MEDS ORDERED: MethylPREDNISolone Sod Succinate Inj 125 MG/2 ML Vial IV.PUSH ONE (09:53)
[2018-04-28] MEDS ORDERED: fentaNYL Citrate Inj 100 MCG/2 ML Ampul ONE (09:58)
[2018-04-28] MEDS ORDERED: fentaNYL Citrate Inj 100 MCG/2 ML Ampul IV.PUSH ONE (10:06)
--- NOTE | 2018-04-28 10:37 | CATHPROC ---
[employer] HIS Report Study Information Study Number Admission Scheduled Start Study Start [id number] Apr 27 2018 10:27PM 04/28/2018 Apr 28 2018 9:32AM [place] Service Cath Endovascular Study Admit Source Facility Department Emergency department [facility] [place] Nurse Physician and Clinical Staff Initial Jake Horan Acetylene Torch Operator Yoni Reynoso RN Acetylene Torch Operator Roberto Valentino RN Recorder Joseph, Lin ScrGabby Mccurdy,IN HOME SALES REPRESENTATIVE TECH2 Procedures Performed Procedure Location (Site) Vessel Name Coronary Angiograms LCA Left Coronary L Heart Cath Wire insertion Radial (right) Radial Art. Equipment Time Crop Research Scientist Description Size Mfg Part Number Used/Scraped TRANSDUCER, TRUWAVE [id number] 09:33 Microdermis GONZALEZ * Used W/STOCKCOCK *[id number] [id number] *[id number] [id number] *[id number] 09:33 Goal Zero BLANKET,WARM AIR CCL * Used *[id number] 09:33 Goal Zero PACK, CCL CUSTOM * Used *[id number] 09:33 Goal Zero SUPPORT, ARTERIAL ADULT [id number] *[id number] Used [id number] 10:24 MEDTRONIC AL 1 DXTERITY CATHETER FR 5 Used *[id number] BAND, RADIAL COMPRESSION TR [id number] 10:27 Numerify 24CM Used SHORT 24 *[id number] SHEATH, FR6 RADIAL PRELUDE 10:09 Numerify FR 6 [id number] Used EASE 11CM SHEATH, FR6 RADIAL PRELUDE 09:33 Numerify FR 6 [id number] Used EASE 11CM [id number] 09:33 Numerify WIRE, EXCHANGE 260CM 3MMJ 260CM Used *[id number] 09:33 NAMIC MANIFOLD, 4 PORT * Used *[id number] 09:33 NYCOMED OMNIPAQUE, 350 MG, 150ML 150ML [id number] Used Equipment Model, Serial, Lot Number and Expiration Data Description Model Number Serial Number Lot Number Expiration Date AL 1 DXTERITY CATHETER [id number] 01-17-2021 History: Current Medications Medication Dosage/Unit Route Frequency Last Date/Time Taken ASA LISINOPRIL Statins (any) LASIX LOPRESSOR History: Allergies Allergy Reaction shellfish derived Anaphylaxis shrimp Swelling History: Risk Factors Family History of Hypertension Dyslipidemia Previous MO Previous Heart Failure Premature CAD Yes Yes No No No Prior Valve Prior PCI Prior CABG Surgery No No No Cerebrovascular Peripheral Artery Chronic Lung On Dialysis Diabetes Diabetes Therapy Disease Disease Disease No No Yes Yes Yes Diet History: Stress Tests Stress or Imaging Studies Performed No History: Arrhythmias Selection Items Atrial fibrillation History: Other Disease Selection Items CAD COPD History: Other Current Smoker No Labs Hgb (g/dl) Hct (%) WBC (l/cumm) Platelets (thousands) 11.60-17.00 35.00-51.00 4.00-11.00 150.00-450.00 14.1 41.1 7.9 210 Glucose (mg/dl) BUN (mg/dl) Creatinine (mg/dl) BUN:Creatinine (1:x) 74.00-106.00 7.00-18.00 0.50-1.30 10.00-20.00 115 83 0.8 103.8 Na (meq/l) K (meq/l) 136.00-145.00 3.50-5.10 135 3.8 INR (PTT:PT) 0.90-1.10 1.2 Troponin I (ng/ml) CPK-MB (ng/ML) 0.02-0.05 0.50-3.60 4.2 Not Drawn Medication Medication Total Dose (Bolus/Oral) Medication Total Dosage/Unit 1% XYLOCAINE 5 mL BENADRYL 50 mg FENTANYL 25 mcg PEPCID 20 mg RADIAL COCKTAIL 5 mL (Bolus) SOLU-MEDROL 125 mg VERSED 1 mg Medications (Bolus/Oral) Medication Time Given Dosage/Unit Administered By Reason PEPCID 04/28/2018 9:52:00 AM 20 mg Chicho, Roberto 20 mg PEPCID given in lab by Roberto Valentino RN in Left Antecubital via Peripheral IV. Ordered by Jake Coreas. SOLU-MEDROL 04/28/2018 9:53:29 AM 125 mg Chicho, Roberto 125 mg SOLU-MEDROL given in lab by Roberto Valentino RN via Peripheral IV. Ordered by Jake Coreas. BENADRYL 04/28/2018 9:54:00 AM 50 mg Chicho, Roberto 50 mg BENADRYL given in lab by Roberto Valentino RN in Left Antecubital via Peripheral IV. Ordered by Jake Nichols. VERSED 04/28/2018 10:05:44 AM 1 mg Chicho, Roberto 1 mg VERSED given in lab by Roberto Valentino, RN in Left Antecubital via Peripheral IV. Ordered by Jake Coreas. FENTANYL 04/28/2018 10:06:51 AM 25 mcg Chicho, Roberto 25 mcg FENTANYL given in lab by Roberto Valentino RN in Left Antecubital via Peripheral IV. Ordered by Jake Hinds. 1% XYLOCAINE 04/28/2018 10:08:09 AM 5 mL Jake Coreas 5 mL 1% XYLOCAINE given in lab by Jake Coreas in Right Radial via Subcutaneous. Ordered by Jake Coreas. Ntg 200mcg Verapamil 2.5mg Heparin RADIAL COCKTAIL 04/28/2018 10:09:23 AM 5 mL (Bolus) Jake Coreas 2000U 5 mL (Bolus) RADIAL COCKTAIL given in lab by Jake Coreas in Right Radial via Radial. Using [Soluti on Name]. Ordered by Jake Coreas. Reason: Ntg 200mcg Medication (Drip) Medication Time Given Dosage/Unit Concentration/Unit Diluent (ml) Solution IV Solutions 04/28/2018 9:44:06 AM 50 mL (IV) NaCl .9 Patient arrived on IV Solutions via Peripheral IV. Pump/Drip Flow using NaCl .9. Initial Case Assessment Cardiovascular HR NIBP 100 115/84 Edema Present Skin color Skin None Normal Warm Dry Circulatory - Right Pulses Dorsalis Pedis Femoral Radial 1 1 2 Scale (0,1,2,3,4,d) Circulatory - Left Pulses Dorsalis Pedis Femoral Radial 1 1 Scale (0,1,2,3,4,d) Neurological State Oriented to time-place- Alert Moves all extremities person Respiration - General Respiration Rate SpO2 (%) O2 (lpm) (B/min) 20 99 2 Final Case Assessment Cardiovascular HR NIBP Chest Pain 88 123/79 0 Edema Present Skin color Skin None Normal Warm Dry Circulatory - Right Pulses Dorsalis Pedis Femoral Radial 1 1 2 Scale (0,1,2,3,4,d) Circulatory - Left Pulses Dorsalis Pedis Femoral Radial 1 1 Scale (0,1,2,3,4,d) Neurological State Oriented to time-place- Alert Moves all extremities person Respiration - General Respiration Rate SpO2 (%) O2 (lpm) (B/min) 24 100 2 Chronological Log Time Study Chronological Log 9:34:00 Patient arrived via Bed. 9:38:32 NIBP STAT measurement started. 9:39:03 HR=90 bpm, ROVR=105/84 mmhg, SpO2=99 %, Resp=24 B/min, Pain=0, Vanessa=10, Contreras=2 9:43:42 Patient Name, D.O.B, / Armband Verified By R.N. 9:43:43 Consent signed by the physician and the patient and verified by the [place] Nurse staff. 9:43:47 Pre-op and post- op instructions given; patient acknowledges understanding of instructions. Verbal Stimulation=~VERBAL~ Physical Stimulation=~PHYSICAL~ Airway=~AIRWAY~ Respiration=~RESPIR ATION~ 9:43:48 TOTAL=~TOTAL~. (0=absent, 1=limited, 2=present) 9:43:53 Allens test performed on the right radial and ulnar artery. 9:43:56 Patient has been NPO for More than 6Hrs. 9:43:56 Skin Breakdown-none 9:43:57 Patient Warmer Placed on the Table. 9:43:58 Nathan Prominences Protected 9:43:59 A # 20 IV was noted in the Antecubital (left). Grade = 0 9:44:06 Patient arrived on IV Solutions via Peripheral IV. Pump/Drip Flow using NaCl .9. 9:44:10 History and physical on the chart or being dictated. Assessment: Initial Case, OW=262 BPM, ZITZ=109/84 mmhg, Edema=None, Color=Normal, Skin = Warm, Dry Right Pulses: Ricardo Ped=1, Femoral=1, Radial=2 9:44:12 Left Pulses: Ricardo Ped=1, Femoral=1 Neurological: State=Alert, Ox3, REDDY Respiration: Resp=20 B/min, SpO2=99 %, O2=2 lpm 9:49:25 Right Radial and groin(s) prepped with 2% chlorhexidine, and draped after a 3 min. waiting t shayy. 9:50:36 Reference ECG taken 9:52:00 20 mg PEPCID given in lab by Roberto Valentino, RN in Left Antecubital via Peripheral IV. Ordered by Jake Coreas. 9:53:29 125 mg SOLU-MEDROL given in lab by Roberto Valentino RN via Peripheral IV. Ordered by Richard Coreas phen. 9:54:00 50 mg BENADRYL given in lab by Roberto Valentino RN in Left Antecubital via Peripheral IV. Order ed by Jake Coreas. 9:57:18 Pressure channel 1 zeroed. 9:59:04 MD paged 10:00:00 MD responded 10:03:53 MD arrived. Time Out. Correct patient, correct procedure, correct physician, labs, allergies, and equipment verified with petroleum refinery laborer 10:04:46 team present. Fire risk assesment completed (see hard stop sheet for coding). Time Out Conc urred by MD and individual staff in procedure. 10:05:44 1 mg VERSED given in lab by Roberto Valentino RN in Left Antecubital via Peripheral IV. Ordered by Jake Coreas. 10:06:51 25 mcg FENTANYL given in lab by Roberto Valentino RN in Left Antecubital via Peripheral IV. Ord ered by Jake Coreas. 10:08:07 Case Start 10:08:09 5 mL 1% XYLOCAINE given in lab by Jake Coreas in Right Radial via Subcutaneous. Ordered by Jake Coreas. 10:08:54 Access site was Right Radial Artery . A SHEATH, FR6 RADIAL PRELUDE EASE 11CM FR 6 was advanced into the Radial (right) using the Perc utaneous 10:09:03 technique. 5 mL (Bolus) RADIAL COCKTAIL given in lab by Jake Coreas in Right Radial via Radial. Using [ Solution Name]. 10:09:23 Ordered by Jake Coreas. Reason: Ntg 200mcg A JR 5.0 INFINITI CATHETER FR 5 was advanced over a wire. OMNIPAQUE, 350 MG, 150ML 150ML was us ed for 10:10:15 injections. Recorded Pressure: LV, HR=92, Condition=Condition 1 10:11:17 (Left Ventricle) LV 111/11/18 Recorded Pressure: LV, Ao, HR=90, Condition=Condition 1 10:11:20 (Left Ventricle) LV 114/10/18, (Aorta) Ao 115/76/94 After removing the current catheter a JL 3.5 INFINITI CATHETER FR 5 was advanced over a WIRE, E XCHANGE 260CM 10:14:31 3MMJ 260CM. 10:15:37 The LCA was injected and visualized at various angles. OMNIPAQUE, 350 MG, 150ML 150ML used . Recorded Pressure: Ao, HR=98, Condition=Condition 1 10:15:53 (Aorta) Ao 116/74/94 10:19:06 Catheter was removed A JL 5.0 INFINITI CATHETER FR 5 was advanced over a wire. OMNIPAQUE, 350 MG, 150ML 150ML was us ed for 10:20:08 injections. Vitals capture started with the following parameters, Patient=Adult, Interval=5 min, Initial Pr zubmbw=640 mmHg, 10:22:46 Deflation Rate=5 mmHg, Cuff placed on Right Arm 10:23:17 MW=152 bpm, LCPY=358/79 mmhg, SpO2=93.0 %, Resp=19 B/min, Pain=0, Vanessa=10, Contreras=2 10:23:37 Catheter was removed A AL 1 DXTERITY CATHETER FR 5 was advanced over a wire. OMNIPAQUE, 350 MG, 150ML 150ML was used for 10:23:47 injections. 10:25:22 A WIRE, EXCHANGE 260CM 3MMJ 260CM was inserted via Radial (right). 10:25:31 Catheter was removed 10:25:32 Wire removed 10:25:34 Case End (Physician broke scrub) 10:25:52 Catheter(s) removed without difficulty 10:26:06 No case complications noted. 10:26:07 Cine recording checked. 10:26:09 Bedside Report will be given. 10:26:11 A Left Heart Cath was performed. Assessment: Final Case, HR=88 BPM, MLWV=011/79 mmhg, Chest Pain=0, Edema=None, Color=Normal, S kin = Warm, Dry Right Pulses: Ricardo Ped=1, Femoral=1, Radial=2 10:26:20 Left Pulses: Ricardo Ped=1, Femoral=1 Neurological: State=Alert, Ox3, REDDY Respiration: Resp=24 B/min, JmB1=124 %, O2=2 lpm Radial Compression Device Used. 11 mLs of air placed in BAND, RADIAL COMPRESSION TR SHORT 24 2 4CM. Affected 10:27:32 hand 98 % O2 saturation. 10:28:22 HO=202 bpm, XAXH=534/66 mmhg, SpO2=94.0 %, Resp=17 B/min, Pain=0, Vanessa=10, Contreras=2 10:33:21 HR=86 bpm, AWJM=835/68 mmhg, Resp=16 B/min, Pain=0, Vanessa=10, Contreras=2 10:36:47 Patient moved to stretcher 10:37:09 Vitals capture stopped. End Study - Contrast Media Used In Study Contrast Total Opened (mL) Total Used (mL) Total Wasted (mL) Omnipaque 350 55 55 0 End Study - Maximum Contrast Load Max Contrast Load (mL) 527.0 End Study - Radiation Exposure Fluoro Time Fluoro Dose (mGy) Cine Dose (uGym2) (minutes) 7.8 [id number] End Study - Patient Disposition Complications Transferred To Interventional Outcome No Telemetry Bed No attempt made
--- NOTE | 2018-04-28 10:41 | P.PCN ---
Date of procedure: 04/28/18 Pre-op diagnosis: Non-ST elevation myocardial infarction Procedure: power plant operators supervisor: Adams Coreas MD Procedures performed: 1. Fluoroscopy with interpretation 2. Coronary angiography Methods: Risks, benefits, and alternatives were discussed with the patient. Patient understood and consented to the procedure. Patient was brought into the cardiac catheterization lab and placed on the catheterization table. The patient's right wrist was prepped and draped in a sterile fashion. The right wrist was anesthetized with 1% lidocaine. Right wrist was cannulated and a 6 Cypriot 11 cm sheath was placed without difficulty. 200 mcg of intra-arterial nitroglycerin was administered and 5000 units of intravenous heparin. Coronary angiography: The left main coronary artery was selectively engaged with a 5 Cypriot JL 3.5 [place] catheter. The right coronary circulation was selectively engaged with a 5 Cypriot JR 5 [place] catheter. 1. Left main coronary artery has 95% bifurcation stenosis in the distal segment 2. Left anterior descending coronary artery has 95% proximal stenosis. The remainder the vessel has minor luminal irregularities 3. Left circumflex coronary artery has 99% ostial stenosis at the bifurcation. The obtuse marginal branches also have mild to moderate diffuse disease 4. Right coronary is a dominant vessel giving rise to the posterior descending branch. The right coronary artery is occluded proximally with left to right collaterals. Conclusions: 1. Severe left main and three-vessel coronary artery disease Plan: Guideline directed medical therapy. Sheath removed and Hemoband applied. Monitor for postprocedural complications. Cardiothoracic surgical consultation for consideration of coronary bypass surgery 2D echocardiogram pending Initiate heparin drip Case discussed with physician operational assistant. Patient is currently chest pain-free but may need to go to the operating room sooner than later given the severity of stenosis.
[2018-04-28] MEDS ORDERED: Lisinopril 20 MG Tablet PO SCH (11:00)
[2018-04-28] MEDS ORDERED: Iohexol 350 MG/ML 100 ML Vial (for Cath Lab) IVCONTRAST ONE (11:12)
[2018-04-28] MEDS ORDERED: Heparin Drip 25,000 UNIT/250 ML BAG IV.CONT PRN (12:00)
--- NOTE | 2018-04-28 13:46 | ECHRPT ---
Indication: SHORTNESS OF BREATH CONCLUSIONS Technically very difficult study making assessment of left ventricular function and wall motion very suboptimal. Grossly left ventricular function appears to be normal or low normal. Normal left vent ricular size. Wall thickness is normal. There was limited left ventricular wall motion assessment due to poo r endocardial visualization. The left atrial size is [id number] dilated. Mild mitral valve regurgitation. Mild mitral annular calcification. The aortic valve is not well visualized. Possible mild leaflet calcification. BP: / HR: Rhythm: MEASUREMENTS (Male / Female) Normal Values Technical Quality:Very technically difficult study 2D ECHO LV Diastolic Diameter PLAX 4.4 cm 4.2 - 5.9 / 3.9 - 5.3 cm LV Systolic Diameter PLAX 3.5 cm IVS Diastolic Thickness 0.9 cm 0.6 - 1.0 / 0.6 - 0.9 cm LVPW Diastolic Thickness 0.9 cm 0.6 - 1.0 / 0.6 - 0.9 cm LV Relative Wall Thickness 0.4 RV Internal Dim ED PLAX 3.4 cm LVOT Diameter 1.7 cm Aortic Root Diameter 2.2 cm LA Systolic Diameter LX 4.7 cm 3.0 - 4.0 / 2.7 - 3.8 cm M-MODE Aortic Root Diameter MM 2.9 cm LA Systolic Diameter MM 4.9 cm LA Ao Ratio MM 1.7 AV Cusp Separation MM 1.3 cm DOPPLER AV Peak Velocity 116.0 cm/s AV Peak Gradient 5.4 mmHg LVOT Peak Velocity 63.7 cm/s LVOT Peak Gradient 1.6 mmHg AV Area Cont Eq pk 1.2 cm Mitral E Point Velocity 78.0 cm/s LV E' Lateral Velocity 8.0 cm/s Mitral E to LV E' Lateral Ratio 9.8 LV E' Septal Velocity 6.3 cm/s Mitral E to LV E' Septal Ratio 12.3 TR Peak Velocity 285.0 cm/s TR Peak Gradient 32.5 mmHg Right Atrial Pressure 10.0 mmHg Pulmonary Artery Systolic Pressu 42.5 mmHg Right Ventricular Systolic Press 42.5 mmHg PV Peak Velocity 78.7 cm/s PV Peak Gradient 2.5 mmHg FINDINGS LEFT VENTRICLE Technically very difficult study making assessment of left ventricular function and wall motion very suboptimal. Grossly left ventricular function appears to be normal or low normal. Normal left vent ricular size. Wall thickness is normal. There was limited left ventricular wall motion assessment due to poo r endocardial visualization. RIGHT VENTRICLE Normal right ventricular size and systolic function. LEFT ATRIUM The left atrial size is [id number]-afqplpatbf dilated. RIGHT ATRIUM The right atrial size is normal. ATRIAL SEPTUM Normal atrial septal thickness without atrial level shunting by limited color doppler interrogation. AORTA The aortic root and proximal ascending aorta are normal in size on limited imaging. MITRAL VALVE Mild mitral valve regurgitation. Mild mitral annular calcification. AORTIC VALVE The aortic valve is not well visualized. Possible mild leaflet calcification. TRICUSPID VALVE There is mild tricuspid valve regurgitation. PULMONARY VALVE No pulmonary valve regurgitation or stenosis. VESSELS The inferior vena cava is normal in size. PERICARDIUM No pericardial effusion. Yevgeniy Hassan MD (Electronically Signed) Final Date:28 April 2018 13:46
--- NOTE | 2018-04-28 13:50 | ECG ---
Date Performed: 04/27/2018 Time Performed: 20:42:22 PTAGE: 82 years EKG: ATRIAL FIBRILLATION WITH RAPID VENTRICULAR RESPONSE INDETERMINATE AXIS POSSIBLE RIGHT VENTR ICULAR CONDUCTION DELAY ST DEVIATION AND MODERATE T-WAVE ABNORMALITY, CONSIDER ANTEROLATERAL ISCHEMIA ABNORMAL ECG Compared to PREVIOUS TRACING ATRIAL FIBRILLATION HAS REPLACED Sinus rhythm N, DIFUSE ST DEPRESSIONW ARE NEW,CONSIDER ISCHEMIA. ADDITIONALLY THERE IS ST ELEVATION IN LEAD AVR G IVEN THE DIFUSE ST DEPRESSION, WOULD CONSIDER MULTI VESSEL OR LEFT MAIN DISEASE Clinical correlation is recommended PREVIOUS TRACIN12/19/2013 02.58 DOCTOR: Manuel Chaudhary Interpretating Date/Time 04/28/2018 13:48:50
--- NOTE | 2018-04-28 13:52 | ECG ---
Date Performed: 04/28/2018 Time Performed: 03:32:38 PTAGE: 82 years EKG: Atrial fibrillation QRS changes V3/V4 may be due to LVH but cannot rule out anterior infarc t Possible left ventricular hypertrophy Inferior/lateral ST-T changes may be due to hypertrophy and/o r ischemia Compared to previous tracing VENTRICULAR RATE IS SOMEWHAT SLOWER, DIFUSE ISCHEMIC APPEARI NG ST CHANGES REMAIN Clinical correlation is recommended Abnormal ECG PREVIOUS TRACING : 04/27/2018 20.42 DOCTOR: Manuel Chaudhary Interpretating Date/Time 04/28/2018 13:51:42
[2018-04-28] MEDS ORDERED: Insulin Regular (For Infusion) 100 UNIT in Sodium Chlor 0.9% Inj 99 ML IV.CONT PRN (14:00)
[2018-04-28] MEDS ORDERED: Sodium Chloride 0.9% Irr Bot 500 ML, ceFAZolin Inj 500 MG IRRIGATION SCH ×2 (14:00)
[2018-04-28] MEDS ORDERED: Sodium Chlor 0.9% Inj 77.5 ML, Papaverine Inj 60 MG, Nitroglycerin Inj 100 MCG, dilTIAZ... IRRIGATION SCH ×3 (14:00)
[2018-04-28] MEDS ORDERED: Chlorhexidine 4% Topical 120 APPLIC/120 ML Bottle TOPICAL SCH (14:00)
--- NOTE | 2018-04-28 14:45 | P.PNCV ---
- Note Subjective/Hospital Course: pt seen and evaluated full consult to follow sts risk score discussed with pt plan for CABG x 3 in am RISK SCORES Procedure: Isolated CAB CALCULATE Risk of Mortality: 3.970% Renal Failure: 2.974% Permanent Stroke: 1.706% Prolonged Ventilation: 12.913% DSW Infection: 0.279% Reoperation: 2.120% Morbidity or Mortality: 17.747% Short Length of Stay: 21.309% Long Length of Stay: 10.249% Objective: Vital Signs - 24 hr 04/27/18 20:42 04/27/18 21:00 04/27/18 21:01 Temperature 98 F Pulse Rate 91 H 83 96 H Respiratory Rate 18 16 Blood Pressure 142/82 H 131/84 Pulse Oximetry 97 97 04/27/18 23:00 04/28/18 00:00 04/28/18 01:00 Temperature Pulse Rate 98 H 84 90 Respiratory Rate Blood Pressure Pulse Oximetry 04/28/18 02:00 04/28/18 03:00 04/28/18 04:00 Temperature 97.6 F Pulse Rate 84 94 H 90 Respiratory Rate 18 Blood Pressure 100/57 L Pulse Oximetry 98 04/28/18 05:00 04/28/18 06:00 04/28/18 07:00 Temperature 97.8 F Pulse Rate 94 H 95 H 94 H Respiratory Rate 18 Blood Pressure 110/74 Pulse Oximetry 94 L 04/28/18 08:00 04/28/18 09:00 04/28/18 11:00 Temperature Pulse Rate 100 H 130 H 95 H Respiratory Rate Blood Pressure Pulse Oximetry 94 L 04/28/18 12:00 04/28/18 12:03 04/28/18 13:00 Temperature 98 F Pulse Rate 104 H 97 H 94 H Respiratory Rate 17 Blood Pressure 98/71 L Pulse Oximetry 97 04/28/18 14:00 Temperature Pulse Rate 114 H Respiratory Rate Blood Pressure Pulse Oximetry Labs: Laboratory Results - last 12 hr 04/28/18 04/28/18 04/28/18 03:40 03:40 03:40 WBC 5.8 RBC 4.04 L Hgb 12.1 L Hct 35.3 L MCV 87.4 MCH 29.9 MCHC 34.2 RDW 14.2 Plt Count 176 MPV 7.7 Neut % (Auto) Lymph % (Auto) Desha % (Auto) Eos % (Auto) Baso % (Auto) Neut # (Auto) Lymph # (Auto) Desha # (Auto) Eos # (Auto) Baso # (Auto) WBC Differential Differential Comment APTT 57.2 H D Sodium Potassium Chloride Carbon Dioxide Anion Gap BUN Creatinine Estimated GFR POC Glucose Random Glucose Calcium Troponin I 4.20 H* 04/28/18 04/28/18 04/28/18 06:11 06:11 08:58 WBC 7.9 RBC 4.68 Hgb 14.1 D Hct 41.1 MCV 87.7 MCH 30.0 MCHC 34.2 RDW 14.5 Plt Count 210 MPV 7.5 Neut % (Auto) 68.9 Lymph % (Auto) 21.5 Desha % (Auto) 7.5 Eos % (Auto) 1.3 Baso % (Auto) 0.8 Neut # (Auto) 5.5 Lymph # (Auto) 1.7 Desha # (Auto) 0.6 Eos # (Auto) 0.1 Baso # (Auto) 0.1 WBC Differential . Differential Comment Auto diff final APTT Sodium 135 L Potassium 3.8 Chloride 100 Carbon Dioxide 28.4 Anion Gap 7 BUN 13 Creatinine 0.88 Estimated GFR 83 L POC Glucose 129 H Random Glucose 115 H Calcium 8.8 Troponin I 4.13 H* Result Diagrams: 04/28/18 06:11 04/28/18 06:11
[2018-04-28] MEDS ORDERED: ceFAZolin 2 GM Premix Inj 2 GM/50 ML PIGGYBACK IV.SIG SCH (15:00)
--- NOTE | 2018-04-28 15:28 | US ---
EXAM DATE: 04/28/2018 3:25 PM EST AGE/SEX: 82 years / Male INDICATIONS: Preop cardiac surgery. CLINICAL DATA: This is the patient's initial encounter. Patient reports that signs and symptoms have been present for 1 day and indicates a pain score of 0/10. MEDICAL/SURGICAL HISTORY: Congestive heart failure. Diabetes mellitus type II. Hypercholester olemia. Anxiety. Afib. Cardiomegaly. DVT. HTN. Irregular heart beat. Kidney stones. Skin cancer. He morrhoidectomy. Tonsillectomy. Lithotripsy. Vascular surgery, right leg. COMPARISON: No prior exams available for comparison. TECHNIQUE: Venous ultrasound of both lower extremities was performed from the inguinal ligament to t he proximal calf. Real-time, color Doppler and spectral tracing, compression and augmentation techni ques were used. FINDINGS: Right Leg: Normal compression of the deep venous system from the inguinal region to the proximal maki f. No echogenic clot is seen. Normal response of the venous system to augmentation and respiration. G reater saphenous vein is not present on the right Left Leg: Normal compression of the deep venous system from the inguinal region to the proximal calf . No echogenic clot is seen. Normal response of the venous system to augmentation and respiration. CONCLUSION: 1. Negative for deep venous thrombosis Electronically signed by: Brian Marroquin MD Board Certified Radiologist 04/28/2018 3:27 PM EST
--- NOTE | 2018-04-28 15:29 | US ---
EXAM DATE: 04/28/2018 3:23 PM EST AGE/SEX: 82 years / Male INDICATIONS: Preop cardiac surgery. CLINICAL DATA: This is the patient's initial encounter. Patient reports that signs and symptoms have been present for 1 day and indicates a pain score of 0/10. MEDICAL/SURGICAL HISTORY: Congestive heart failure. Diabetes mellitus type II. Hypercholester olemia. Anxiety. Afib. Cardiomegaly. DVT. HTN. Irregular heart beat. Kidney stones. Skin cancer. He morrhoidectomy. Tonsillectomy. Lithotripsy. Vascular surgery, right leg. [place] [facility] [place] [facility]. . MEASUREMENTS: RIGHT THIGH: Proximal:__Non-visualized Mid:__ Non-visualized Distal:__Non-visualized LEFT THIGH: Proximal:__3 mm Mid:__3 mm Distal:__Non-visualized RIGHT CALF: Proximal:__Non-visualized Mid:__Non-visualized Distal:__Non-visualized LEFT CALF: Proximal:__1 mm Mid:__1 mm Distal:__1 mm FINDINGS: The venous system of the lower extremities are patent by color Doppler imaging. Measurements of the leg veins (in mm) are listed above. CONCLUSION: 1. Venous mapping as above Electronically signed by: Brian Marroquin MD Board Certified Radiologist 04/28/2018 3:27 PM EST
--- NOTE | 2018-04-28 15:30 | US ---
EXAM DATE: 04/28/2018 3:27 PM EST AGE/SEX: 82 years / Male INDICATIONS: Pre op cardiac surgery. CLINICAL DATA: This is the patient's initial encounter. Patient reports that signs and symptoms have been present for 1 day and indicates a pain score of 0/10. MEDICAL/SURGICAL HISTORY: Congestive heart failure. Diabetes mellitus type II. Hypercholester olemia. Anxiety. Afib. Cardiomegaly. DVT. HTN. Irregular heart beat. Kidney stones. Skin cancer. He morrhoidectomy. Tonsillectomy. Lithotripsy. Vascular surgery, right leg COMPARISON: No prior exams available for comparison. VELOCITY PARAMETERS: ICA/CCA Ratio: Right 1.3 , Left 1.2 ICA: Right 76 cm/sec, Left 63 cm/sec CCA: Right 60 cm/sec, Left 54 cm/sec ECA: Right 96 cm/sec, Left 77 cm/sec Vertebral: Right 31 cm/sec antegrade, Left 25 cm/sec antegrade FINDINGS: Right Carotid: Bulky calcified plaque.The waveforms are within normal limits. Left Carotid: Bulky calcified plaque. The waveforms are within normal limits. Other: None. CONCLUSION: 1. Right Internal Carotid Artery: Findings indicate <50% stenosis. 2. Left Internal Carotid Artery: Findings indicate <50% stenosis. Electronically signed by: Floyd Reed MD Board Certified Radiologist 04/28/2018 3:29 PM EST
--- NOTE | 2018-04-28 15:36 | MB ---
cc: Fay Elam APRN DATE: 04/28/2018 HISTORY OF PRESENT ILLNESS: An 82[facility] Dr[facility] Coreas, who presented himself to the emergency room with chest pain that he has had for the last couple of days. He has had some shortness of breath with minimal exertion over the past couple of months. He has also a longstanding history of atrial fibrillation where he was diagnosed about 3 years ago. He has refused anticoagulation. Upon arrival, his EKG showed atrial fibrillation, heart rate in the 90s, T-wave inversion, anterior lateral leads. Troponin elevated at 4.5. Ruled in for a non-STEMI. His chest x-ray showed some CHF with some volume overload and was treated with Lasix IV. The patient underwent cardiac catheterization by Dr. Coreas today, which showed left main disease of 90%, proximal LAD 90, the mid distal LAD 95%, the RCA 100%. We were consulted to evaluate for coronary artery bypass grafting. The echocardiogram showed ejection fraction approximately 40% to 45% with some mild mitral regurgitation. PAST MEDICAL HISTORY: Significant for diabetes mellitus, oral medications. Chronic atrial fibrillation. Prior refusal for anticoagulation. History of blood clots in his leg in 1960s, where he was on a short course of Coumadin. Anxiety, hypertension. History of prostate cancer, on Lupron treatment. 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 He was also found to have some elevated LFTs. PAST SURGICAL HISTORY: Included lithotripsy, phlebectomy 1960, hemorrhoidectomy, melanoma resection. ALLERGIES: INCLUDE SHELLFISH DERIVED SHRIMP. HOME MEDICATIONS: 1. Librium 2. Benadryl. 3. Flonase. 4. Glipizide. 5. Aspirin. 6. . 7. Docusate. 8. Hydrochlorothiazide. 9. Lisinopril. 10. Metoprolol. 11. Singulair. 12. Simvastatin. FAMILY HISTORY: Mother at 68 from an [place]. SOCIAL HISTORY: The patient lives alone. No recent tobacco. No alcohol for many years. REVIEW OF SYSTEMS: GENERAL: No night sweats, fever, heat and cold intolerance. SKIN: No psoriasis, itching or hives. HEENT: No blurred vision. He does wear reading glasses. Orally, he does wear partial dentures on the top. RESPIRATORY: Positive for recent shortness of breath. No paroxysmal nocturnal dyspnea. CARDIOVASCULAR: As above in the HPI. GASTROINTESTINAL: No diarrhea or vomiting. GENITOURINARY: No burning, frequency, urgency. CENTRAL NERVOUS SYSTEM: No history of TIA, CVA or seizure disorder. ENDOCRINOLOGY: Positive for diabetes. PHYSICAL EXAMINATION: VITAL SIGNS: Blood pressure 100/60, heart rate of 97, temperature max 98, O2 saturation 97% on room air. GENERAL: Awake, alert, in no acute distress. HEENT: Head is normocephalic, atraumatic. Pupils equal and reactive. Oral mucosa pink, moist. NECK: Supple. No JVD. CARDIOVASCULAR: Heart sounds S1, S2, irregular rate and rhythm. No audible rubs, murmurs, or gallops. LUNGS: Diminished in the bases, otherwise clear to auscultation. No wheezes, rales or rhonchi. ABDOMEN: Soft, nontender. No masses or organomegaly. EXTREMITIES: Reveal no cyanosis, clubbing, or edema. He has got some scarring to his right popliteal area from prior surgery. LABORATORY DATA: Shows sodium 135, potassium 3.8, BUN of 13, creatinine 0.88. Troponin was 4.5. Hemoglobin 14, hematocrit of 41. White cell count of 7.9, platelet count of 210,000. INR 1.2. Radiological exam with cardiomegaly with mild positive fluid balance, some lower airspace disease ASSESSMENT AND PLAN: This is again an 82-year-old patient ruled in for a non-STEMI, multivessel coronary artery disease with 90% left main disease. The cardiac films have been evaluated by Dr. Esau Wei. The patient is agreeable to proceed for surgery. The plan for coronary artery bypass graft x3 in the a.m. NORI Evans MD JRT/emily/rhianna , 02:51 PM , 03:00 PM
--- NOTE | 2018-04-28 15:39 | P.PNIM ---
Subjective Interval history: Chief complaint: Shortness of breath History of presenting complaint: History from patient, ER physician communication, and review of medical records. Patient reported that he came to the hospital because he has been short of breath for the past few days. He stated he went to the [facility] for [facility]. He then went on talking about how his heart rate was greater than 100 and usually it would be between 70-80. He thinks that his metoprolol dose needs to be increased from 12.5-25. However, upon further specific questioning, patient states that he has been feeling very congested. He felt his heart was pinching for past few weeks. He stated he could not walk as much as he used to and doing grocery shopping has been quite difficult lately. Also report of associated cough with whitish mucus for the past 2-1/2 months. However denies any peripheral edema. Reports of diarrhea for the past 3 days but also admits to taking Metamucil and also states that it is resolved none. Denies any nausea. Denies any fever. Denies any hematemesis/hematochezia/melena/hematuria. Denies any urinary burning or pain on urination or frequent urination. Denies any syncope/dizziness/falls. In the emergency room, patient's workup revealed elevated troponin consistent with non-ST elevation WI. Patient's case was discussed with research staff member on-call by ER physician. Patient was started on nitro drip and heparin drip in ER. 1-4 HAD CARDIAC CATH NEEDS CABG- HAS SEVERE LEFT MAIN AND THREE VESSEL CAD TO HAVE PROCEDURE WITH [facility] TOM[facility] CONTINUE ON HEPARIN DRIP SREEKANTH RN AND PT AND CM Physical Exam Vital signs: Vital Signs 04/27/18 20:42 04/27/18 21:00 04/27/18 21:01 Temperature 98 F Pulse Rate 91 H 83 96 H Respiratory Rate 18 16 Blood Pressure 142/82 H 131/84 Pulse Oximetry 97 97 04/27/18 23:00 04/28/18 00:00 04/28/18 01:00 Temperature Pulse Rate 98 H 84 90 Respiratory Rate Blood Pressure Pulse Oximetry 04/28/18 02:00 04/28/18 03:00 04/28/18 04:00 Temperature 97.6 F Pulse Rate 84 94 H 90 Respiratory Rate 18 Blood Pressure 100/57 L Pulse Oximetry 98 04/28/18 05:00 04/28/18 06:00 04/28/18 07:00 Temperature 97.8 F Pulse Rate 94 H 95 H 94 H Respiratory Rate 18 Blood Pressure 110/74 Pulse Oximetry 94 L 04/28/18 08:00 04/28/18 09:00 04/28/18 11:00 Temperature Pulse Rate 100 H 130 H 95 H Respiratory Rate Blood Pressure Pulse Oximetry 94 L 04/28/18 12:00 04/28/18 12:03 04/28/18 13:00 Temperature 98 F Pulse Rate 104 H 97 H 94 H Respiratory Rate 17 Blood Pressure 98/71 L Pulse Oximetry 97 04/28/18 14:00 Temperature Pulse Rate 114 H Respiratory Rate Blood Pressure Pulse Oximetry Intake & Output 04/27/18 04/28/18 04/28/18 18:59 06:59 18:59 Intake Total 126 / 126 Output Total 1075 / 1075 Balance -1075 / -1075 126 / 126 Weight 84.3 kg Intake: IV 126 / 126 Heparin/NS PF Inj 1,000 ML @ 0 1 / 1 mls/hr .ROUTE .[facility] Rx#: [id number] Heparin/D5W 25,000 U/250 mL 25, 125 / 125 000 unit In 250 ml @ Per Protocol IV.CONT TITRATE PRN Rx #:[id number] Output: Urine 1075 / 1075 Other: Date of Last Bowel Movement 04/28/18 Narrative: GENERAL: Alert and oriented x3 talkative and cooperative SKIN: Warm and dry. HEAD: Normocephalic. Atraumatic EYES: No scleral icterus. No injection or drainage. PERRLA EOMI Oral mucosa is moist tongue is midline NECK: Supple, trachea midline. No JVD or lymphadenopathy. CARDIOVASCULAR: irregular rate and rhythm without murmurs, gallops, or rubs. RESPIRATORY: decreased breaths sounds to bilateral bases. No accessory muscle use. GASTROINTESTINAL: Abdomen soft, non-tender, nondistended. MUSCULOSKELETAL: No cyanosis, or edema. Insight and judgment is good mood and behavior is appropriate Results - Labs CBC & Chem 7: 04/28/18 06:11 04/28/18 06:11 Laboratory Results - last 24 hr 04/27/18 04/27/18 04/27/18 21:25 21:25 21:25 WBC 7.2 RBC 4.32 L Hgb 12.8 L Hct 37.7 L MCV 87.4 MCH 29.5 MCHC 33.8 RDW 14.1 Plt Count 217 MPV 7.6 Neut % (Auto) 71.5 H Lymph % (Auto) 18.0 Milam % (Auto) 8.4 H Eos % (Auto) 1.5 Baso % (Auto) 0.6 Neut # (Auto) 5.2 Lymph # (Auto) 1.3 Milam # (Auto) 0.6 Eos # (Auto) 0.1 Baso # (Auto) 0.0 WBC Differential . Differential Comment Auto diff final PT 12.2 H INR 1.2 APTT 29.4 Sodium 132 L Potassium 4.3 Chloride 101 Carbon Dioxide 24.6 Anion Gap 6 BUN 15 Creatinine 0.96 Estimated GFR 75 L POC Glucose Random Glucose 145 H Calcium 8.1 L Total Bilirubin 0.4 AST 94 H ALT 80 H Alkaline Phosphatase 68 Troponin I 4.34 H* Total Protein 7.1 Albumin 3.5 04/27/18 04/28/18 04/28/18 21:25 03:40 03:40 WBC RBC Hgb Hct MCV MCH MCHC RDW Plt Count MPV Neut % (Auto) Lymph % (Auto) Milam % (Auto) Eos % (Auto) Baso % (Auto) Neut # (Auto) Lymph # (Auto) Milam # (Auto) Eos # (Auto) Baso # (Auto) WBC Differential Differential Comment PT INR APTT 57.2 H D Sodium Potassium Chloride Carbon Dioxide Anion Gap BUN Creatinine Estimated GFR POC Glucose Random Glucose Calcium Total Bilirubin AST ALT Alkaline Phosphatase Troponin I 4.52 H* 4.20 H* Total Protein Albumin 04/28/18 04/28/18 04/28/18 03:40 06:11 06:11 WBC 5.8 7.9 RBC 4.04 L 4.68 Hgb 12.1 L 14.1 D Hct 35.3 L 41.1 MCV 87.4 87.7 MCH 29.9 30.0 MCHC 34.2 34.2 RDW 14.2 14.5 Plt Count 176 210 MPV 7.7 7.5 Neut % (Auto) 68.9 Lymph % (Auto) 21.5 Milam % (Auto) 7.5 Eos % (Auto) 1.3 Baso % (Auto) 0.8 Neut # (Auto) 5.5 Lymph # (Auto) 1.7 Milam # (Auto) 0.6 Eos # (Auto) 0.1 Baso # (Auto) 0.1 WBC Differential . Differential Comment Auto diff final PT INR APTT Sodium 135 L Potassium 3.8 Chloride 100 Carbon Dioxide 28.4 Anion Gap 7 BUN 13 Creatinine 0.88 Estimated GFR 83 L POC Glucose Random Glucose 115 H Calcium 8.8 Total Bilirubin AST ALT Alkaline Phosphatase Troponin I 4.13 H* Total Protein Albumin 04/28/18 08:58 WBC RBC Hgb Hct MCV MCH MCHC RDW Plt Count MPV Neut % (Auto) Lymph % (Auto) Milam % (Auto) Eos % (Auto) Baso % (Auto) Neut # (Auto) Lymph # (Auto) Milam # (Auto) Eos # (Auto) Baso # (Auto) WBC Differential Differential Comment PT INR APTT Sodium Potassium Chloride Carbon Dioxide Anion Gap BUN Creatinine Estimated GFR POC Glucose 129 H Random Glucose Calcium Total Bilirubin AST ALT Alkaline Phosphatase Troponin I Total Protein Albumin Microbiology 04/28/18 06:21 Stool Stool Occult Blood (MAO) - Final Hemoccult negative - Imaging Impressions Chest X-Ray 04/27/18 20:53 CONCLUSION: 1. Cardiomegaly with mild positive fluid balance. 2. Ill-defined bilateral lower lobe airspace disease, presumably atelectasis. Differential considerations include aspiration and developing pneumonia in the appropriate clinical setting. Carotid Doppler Study 04/28/18 14:00 CONCLUSION: 1. Right Internal Carotid Artery: Findings indicate <50% stenosis. 2. Left Internal Carotid Artery: Findings indicate <50% stenosis. Lower Extremity Ultrasound 04/28/18 14:00 CONCLUSION: 1. Venous mapping as above Venous Doppler Study 04/28/18 14:00 CONCLUSION: 1. Negative for deep venous thrombosis - Procedures Date of procedure: 04/28/18 Pre-op diagnosis: Non-ST elevation myocardial infarction Procedure: asphalt tamping machine operator: Adams Coreas MD Procedures performed: 1. Fluoroscopy with interpretation 2. Coronary angiography Methods: Risks, benefits, and alternatives were discussed with the patient. Patient understood and consented to the procedure. Patient was brought into the cardiac catheterization lab and placed on the catheterization table. The patient's right wrist was prepped and draped in a sterile fashion. The right wrist was anesthetized with 1% lidocaine. Right wrist was cannulated and a 6 Cymro 11 cm sheath was placed without difficulty. 200 mcg of intra-arterial nitroglycerin was administered and 5000 units of intravenous heparin. Coronary angiography: The left main coronary artery was selectively engaged with a 5 Cymro JL 3.5 [place] catheter. The right coronary circulation was selectively engaged with a 5 Cymro JR 5 [place] catheter. 1. Left main coronary artery has 95% bifurcation stenosis in the distal segment 2. Left anterior descending coronary artery has 95% proximal stenosis. The remainder the vessel has minor luminal irregularities 3. Left circumflex coronary artery has 99% ostial stenosis at the bifurcation. The obtuse marginal branches also have mild to moderate diffuse disease 4. Right coronary is a dominant vessel giving rise to the posterior descending branch. The right coronary artery is occluded proximally with left to right collaterals. Conclusions: 1. Severe left main and three-vessel coronary artery disease Plan: Guideline directed medical therapy. Sheath removed and Hemoband applied. Monitor for postprocedural complications. Cardiothoracic surgical consultation for consideration of coronary bypass surgery 2D echocardiogram pending Initiate heparin drip Case discussed with physician office support assistant. Patient is currently chest pain-free but may need to go to the operating room sooner than later given the severity of stenosis. Documented By: Jake Coreas MD Assessment and Plan - Plan Non-ST elevation WI-had positive troponins-positive cardiac catheterization with left main disease and need for three-vessel CABG-continue heparin drip Suspect New-onset CHF likely secondary to WI. 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 Also has history of prior melanoma in right ear, chest. History of renal stones Plan: Serial cardiac enzymes and EKGs. Positive cardiac catheterization will undergo CABG tomorrow April 29 Continue heparin drip. Continue nitroglycerin drip. Aspirin 325 mg p.o. daily. Cardiology was consulted. Had cardiac catheterization will undergo CABG tomorrow for multivessel coronary artery disease Give Lasix 20 mg IV 1 dose now. Echocardiogram in a.m. Resume home meds. However hold oral hypoglycemic medications and insulin due to n.p.o. status. We will monitor fingersticks. Cardiac diabetic diet DVT is on heparin. Code Status: Full code Discussed Condition With: RN and patient and case management Discharge Planning: Pending clearance by cardiovascular surgery and cardiology
[2018-04-28 16:35] LABS: Bilirubin,Urine Negative (Negative); Clarity,Urine Clear (Clear); Color,Urine Yellow (Yellw/Straw); Glucose,Urine (UA) 500 or Greater mg/dL (Negative); Leukocyte Esterase,Urine Negative (Negative); Nitrite,Urine Negative (Negative); Specific Gravity,Urine 1.027 (1.002-1.035)
[2018-04-28] MEDS ORDERED: Bacitracin Oint 0.9 GM Packet TOPICAL ONE (16:45)
[2018-04-28] MEDS: Insulin NovoLOG Aspart Correctional Sugar Inj SQ SCH ×2 (17:52→21:10)
[2018-04-28] MEDS: Montelukast 10 MG Tablet PO SCH (18:34)
[2018-04-28] MEDS ORDERED: Morphine Sulfate Inj 2 MG/ML Vial ONE (20:01)
[2018-04-28] MEDS ORDERED: Morphine Inj 4 MG/ML Vial IV.PUSH ONE (20:15)
[2018-04-28] MEDS ORDERED: Metoprolol Tartrate 50 MG Tablet PO ONE (20:15)
[2018-04-28] MEDS ORDERED: ALPRAZolam 0.5 MG Tablet PO ONE (20:45)
[2018-04-28 21:21] LABS: Hemoglobin A1c 6.2 % (4.3-6.0)
[2018-04-29] MEDS: Insulin NovoLOG Aspart Correctional Sugar Inj SQ SCH ×3 (03:43→13:41)
[2018-04-29 06:25] LABS: Baso % (Auto) 0.3 % (0.0-2.0); Hematocrit 35.5 % (39.0-51.0); Hemoglobin 12.4 gm/dL (13.0-17.0); Lymph # (Auto) 0.5 th/mm3 (1.0-4.8); Mean Corpuscular HGB Conc 35.1 % (32.0-36.0); Mean Corpuscular Hemoglobin 30.1 pg (27.0-34.0); Mean Corpuscular Volume 85.7 fL (80.0-100.0); Mean Platelet Volume 7.7 fL (7.0-11.0); Mono # (Auto) 0.3 th/mm3 (0.0-0.9); Mono % (Auto) 3.5 % (0.0-8.0); Neut # (Auto) 8.6 th/mm3 (1.8-7.7); Neut % (Auto) 91.2 % (16.0-70.0); Platelet Count 204 th/mm3 (150-450); Red Blood Count 4.14 mil/mm3 (4.50-5.90); Red Cell Distribution Width 14.5 % (11.6-17.2); White Blood Count 9.5 th/mm3 (4.0-11.0)
[2018-04-29] MEDS ORDERED: ceFAZolin 1 GM Premix Inj 2 GM/100 ML PIGGYBACK IV.SIG ONE (06:42)
[2018-04-29] MEDS ORDERED: Heparin - SQ 10,000 UNITS/ML Vial ONE ×3 (06:42→06:43)
[2018-04-29 07:10] LABS: Albumin 3.4 g/dL (3.4-5.0); Anion Gap 7 meq/L (5-15); Aspartate Aminotransferase 76 U/L (15-37); Blood Urea Nitrogen 19 mg/dL (7-18); Calcium 8.6 mg/dL (8.5-10.1); Carbon Dioxide 27.8 meq/L (21.0-32.0); Chloride 99 meq/L (98-107); Glomerular Filtration Rate 79 mL/min (>89); Glucose,Random 170 mg/dL (74-106); Sodium 134 meq/L (136-145)
[2018-04-29 07:11] LABS: Cholesterol 133 mg/dL (120-200); Triglycerides 100 mg/dL (42-150)
[2018-04-29 07:20] LABS: Alanine Aminotransferase 55 U/L (12-78); Alkaline Phosphatase 61 U/L (45-117); Chol/HDL Ratio 5.01 Ratio; Free T4 (Free Thyroxine) 1.29 ng/dL (0.76-1.46); HDL Cholesterol 26.5 mg/dL (40.0-60.0); LDL Cholesterol,Calculated 87 mg/dL (0-99); Thyroid Stimulating Hormone 0.331 uIU/mL (0.358-3.740); Total Protein 7.1 g/dL (6.4-8.2)
[2018-04-29] MEDS ORDERED: Lidocaine/D5W 2000 mg/500 mL 2,000 MG/500 ML BAG ONE (10:09)
[2018-04-29] MEDS ORDERED: EPINEPHrine (1:1000) Inj 2 MG in Sodium Chlor 0.9% Inj 248 ML IV.CONT PRN (11:50)
[2018-04-29] MEDS ORDERED: Magnesium Sulfate Inj 2 GM in Sodium Chlor 0.9% Inj 96 ML IV.SIG PRN ×4 (11:50)
[2018-04-29] MEDS ORDERED: Dextrose 50% in Water 50 ML Vial IV.PUSH PRN (11:50)
[2018-04-29] MEDS ORDERED: Insulin Regular (For Infusion) 100 UNIT in Sodium Chlor 0.9% Inj 99 ML IV.CONT PRN (11:50)
[2018-04-29] MEDS ORDERED: Dexmedetomidine Inj 200 MCG in Sodium Chlor 0.9% Inj 50 ML IV.CONT PRN (11:50)
[2018-04-29] MEDS ORDERED: RESP: Racemic Epinephrine 2.25% 0.5 ML Neb NEB PRN (11:50)
[2018-04-29] MEDS ORDERED: Potassium Chlor 20 mEq Premix 20 MEQ/100 ML PIGGYBACK IV.SIG PRN ×3 (11:50)
[2018-04-29] MEDS ORDERED: hydrALAZINE HCl Inj 20 MG/ML Vial IV.PUSH PRN (11:50)
[2018-04-29] MEDS ORDERED: fentaNYL Citrate Inj 100 MCG/2 ML Ampul IV.PUSH PRN (11:50)
[2018-04-29] MEDS ORDERED: Post-op Orders (for Pharmacy) OTHER STA (11:50)
[2018-04-29] MEDS ORDERED: Metoprolol Inj 5 MG/5 ML Vial IV.PUSH PRN (11:50)
[2018-04-29] MEDS ORDERED: Calcium Chloride Inj 1 GM/10 ML Syringe IV.PUSH PRN (11:50)
--- NOTE | 2018-04-29 12:06 | P.OP ---
Date of procedure: 04/29/18 Anesthesia: SHERITAA Surgeon: Esau Wei MD Operation and Findings: PREPROCEDURE DIAGNOSES 1. Severe Multi Vessel Coronary Artery Disease. 2. Acute Myocardial Infarction (NSTEMI) 3. Severe Left Ventricular Dysfunction (EF 35%) 4. Chronic Atrial Fibrillation 5. Severely Dilated Right Atrium 6. Heavily Calcified Ascending Aorta POSTPROCEDURE DIAGNOSES Same SURGICAL PROCEDURE 1. Emergent Clampless off-pump Coronary Artery Bypass Grafting x 3 with Left Internal Mammary Artery (RAY) to Left Anterior Descending (LAD), reverse saphenous vein graft to obtuse Marginal 2 branch of the left Circumflex artery, reverse saphenous vein graft to the distal right Coronary artery 2. Left leg Endoscopic Vein Nutrioso 3. Intraoperative Vein Mapping. SURGEON Esau Wei MD COLLECTIONS AND ARCHIVES DIRECTOR ZACHARY Reyes ANESTHESIA General endotracheal DECK LID FITTER Young Chapman, MATERIAL HANDLER Gael Joseph MD PREPARATION ChloraPrep. COUNTS Needle, sponge, and instrument counts were correct. DRAINS Two 32-Swedish mediastinal tubes. COMPLICATIONS None. INDICATIONS FOR PROCEDURE The patient is a 82-year-old presenting with chest pain and acute myocardial infarction. Patient was noted to have multi vessel coronary artery disease. The patient is being brought to the operating room for surgical revascularization therapy. PROCEDURE Patient was brought to the operating room and placed supine on the OR table. Following the induction of adequate general endotracheal anesthesia and placement of appropriate monitoring devices, intraoperative vein mapping was performed which revealed thick but use herbal-caliber conduit in the left lower extremity only. The patient was then prepped and draped in standard sterile fashion. Intra-Op CARLOS A revealed a severely dilated right atrium with smoke in the left possible thrombus atrial appendage as well as severe left ventricular dysfunction. Based on the this, it was decided to not excise the left atrial appendage. Next, 2500 units of intravenous heparin was given. The left greater saphenous vein was harvested endoscopically. This appeared to be a useable-caliber conduit. Simultaneously, a median sternotomy was performed and the left internal mammary artery dissected free off the posterior sternal table. The patient was systemically heparinized and anticoagulation monitored by serial ACT measurements. The internal mammary artery had good pulsatile flow in it and was a good-caliber conduit. The pericardium was then divided in the midline, the cradle created and targets analyzed. Of note the LAD was severely and diffusely diseased all the way down into the apex. A very small area of spared segment was identified in the distal most aspect suitable for bypassing. Furthermore, the right atrium was severely dilated. At this point, all anastomoses were performed in a beating-heart fashion using the Maquet stabilizing system. The left internal mammary artery was anastomosed to the distal LAD (2 mm) in an end-to-side fashion using 7-0 Prolene. Segment of saphenous vein graft was then anastomosed to the OM2 (1.75 mm) in an end-to- side fashion using 7-0 Prolene. The final segment was anastomosed to the distal RCA (2 mm) in an end-to-side fashion using 7-0 Prolene. Manual palpation of the ascending aorta revealed a heavily calcified ascending aorta with a small area of spared wall anterior, which was used for proximal anastomoses. The proximal anastomoses were then constructed to the ascending aorta in a clamp less running manner using 6-0 Prolene and the heartstring device. All anastomotic sites were inspected and appeared to be hemostatic and patent. Protamine solution was given. Strict hemostasis was assured. The closure was undertaken. 2 chest tubes were placed. The sternum was approximated using sternal wires. The muscular and fascial layer were then closed in 3 layers. The endoscopic vein harvest site was closed in 2 layers. The patient tolerated the procedure well and was transferred to CVICU in stable condition.
[2018-04-29] MEDS ORDERED: Potassium Chlor 20 mEq Premix 20 MEQ/100 ML PIGGYBACK IV.SIG ONE (12:30)
[2018-04-29] MEDS ORDERED: fentaNYL Citrate Inj 250 MCG/5 ML Ampul ONE (12:34)
[2018-04-29] MEDS ORDERED: Albumin Human 5% Inj 250 ML IV.SIG PRN (13:00)
[2018-04-29] MEDS: Metoprolol Tartrate 25 MG Tablet PO SCH ×3 (13:05→21:57)
[2018-04-29] MEDS: Docusate Sodium 100 MG Capsule PO SCH (13:05)
--- NOTE | 2018-04-29 13:19 | XR ---
EXAM DATE: 04/29/2018 12:57 PM EST AGE/SEX: 82 years / Male INDICATIONS: Post CABG. CLINICAL DATA: This is the patient's initial encounter. Patient reports that signs and symptoms have been present for 1 day and indicates a pain score of Nonresponsive. MEDICAL/SURGICAL HISTORY: Non-responsive. Non-responsive. [place] [facility] [place]. . FINDINGS: There is mild haziness to the perivascular structures most likely pulmonary edema. Slight cardiomegaly seen. Focal consolidation is not seen. Right IJ line is present with tip overlapping the expected region of the SVC. NG tube is present with tip in the stomach. ET tube is present with ti p overlapping approximately 2 above the doug. Left chest tube is in place. No definite pneumothorax is seen for technique. Left lung base consolidation may also be present. CONCLUSION: Slight CHF and possible left lung base consolidation . Electronically signed by: Parminder Brooks MD Board Certified Radiologist 04/29/2018 1:18 PM EST
[2018-04-29] MEDS: Calcium Chloride Inj 1 GM in Sodium Chlor 0.9% Inj 100 ML IV.SIG PRN (14:05)
--- NOTE | 2018-04-29 14:15 | ECG ---
Date Performed: 04/28/2018 Time Performed: 20:54:48 PTAGE: 82 years EKG: Atrial fibrillation with RVR. Marked ST-T changes with ST depressions across the precordium and anterolaterally, this may be due to ischemia or other causes Since previous tracing, heart rate has increased from 80 to 117, ST-T changes are somewhat more prominent Clinical correlation is recomm ended. Abnormal ECG NO PREVIOUS TRACING DOCTOR: Rene Villanueva Interpretating Date/Time 04/29/2018 14:14:53
[2018-04-29] MEDS: ceFAZolin 2 GM Premix Inj 2 GM/50 ML PIGGYBACK IV.SIG SCH ×2 (14:38→21:22)
[2018-04-29] MEDS ORDERED: Morphine Inj 4 MG/ML Vial IV.PUSH PRN (15:15)
[2018-04-29] MEDS: Ketorolac Inj 30 MG/ML (IVP) Vial IV.PUSH PRN (15:28)
[2018-04-29] MEDS: Montelukast 10 MG Tablet PO SCH ×2 (17:21→21:23)
--- NOTE | 2018-04-29 17:33 | P.PNIM ---
Subjective Interval history: Chief complaint: Shortness of breath History of presenting complaint: History from patient, ER physician communication, and review of medical records. Patient reported that he came to the hospital because he has been short of breath for the past few days. He stated he went to the [place] for medications. He then went on talking about how his heart rate was greater than 100 and usually it would be between 70-80. He thinks that his metoprolol dose needs to be increased from 12.5-25. However, upon further specific questioning, patient states that he has been feeling very congested. He felt his heart was pinching for past few weeks. He stated he could not walk as much as he used to and doing grocery shopping has been quite difficult lately. Also report of associated cough with whitish mucus for the past 2-1/2 months. However denies any peripheral edema. Reports of diarrhea for the past 3 days but also admits to taking Metamucil and also states that it is resolved none. Denies any nausea. Denies any fever. Denies any hematemesis/hematochezia/melena/hematuria. Denies any urinary burning or pain on urination or frequent urination. Denies any syncope/dizziness/falls. In the emergency room, patient's workup revealed elevated troponin consistent with non-ST elevation [place]. Patient's case was discussed with salsa dance instructor on-call by ER physician. Patient was started on nitro drip and heparin drip in ER. 1-4 HAD CARDIAC CATH NEEDS CABG- HAS SEVERE LEFT MAIN AND THREE VESSEL CAD TO HAVE PROCEDURE WITH [facility] TOM[facility] CONTINUE ON HEPARIN DRIP SREEKANTH RN AND PT AND CM 1-5 PATIENT HAD CABG TODAY Emergent Clampless off-pump Coronary Artery Bypass Grafting x 3 with Left Internal Mammary Artery (RAY) to Left Anterior Descending (LAD), reverse saphenous vein graft to obtuse Marginal 2 branch of the left Circumflex artery, reverse saphenous vein graft to the distal right Coronary artery SEEN IN CVICU AFTER PROCEDURE Physical Exam Vital signs: Vital Signs 04/28/18 17:57 04/28/18 18:00 04/28/18 19:00 Temperature Pulse Rate 105 H 122 H 163 H Respiratory Rate 17 Blood Pressure 126/87 Pulse Oximetry 95 04/28/18 19:15 04/28/18 20:00 04/28/18 21:00 Temperature 98.4 F Pulse Rate 130 H 152 H 124 H Respiratory Rate Blood Pressure 145/98 H Pulse Oximetry 97 97 04/28/18 21:07 04/28/18 22:00 04/28/18 23:00 Temperature Pulse Rate 92 H 83 Respiratory Rate 22 Blood Pressure 94/64 L Pulse Oximetry 96 04/29/18 00:00 04/29/18 01:00 04/29/18 02:00 Temperature Pulse Rate 84 84 86 Respiratory Rate 16 Blood Pressure Pulse Oximetry 04/29/18 03:00 04/29/18 04:00 04/29/18 05:00 Temperature 98.0 F Pulse Rate 80 82 90 Respiratory Rate 18 Blood Pressure 86/55 L Pulse Oximetry 94 L 04/29/18 06:00 04/29/18 12:00 04/29/18 12:29 Temperature Pulse Rate 84 Respiratory Rate 12 12 Blood Pressure Pulse Oximetry 96 04/29/18 12:30 04/29/18 13:11 04/29/18 14:12 Temperature 97.5 F L Pulse Rate 85 89 Respiratory Rate Blood Pressure 107/79 Pulse Oximetry 04/29/18 14:17 04/29/18 14:22 04/29/18 14:53 Temperature 97.3 F L 97.3 F L Pulse Rate 89 82 Respiratory Rate Blood Pressure 99/53 L 107/79 Pulse Oximetry 96 04/29/18 15:10 04/29/18 15:15 04/29/18 15:27 Temperature Pulse Rate 91 H Respiratory Rate 16 20 Blood Pressure Pulse Oximetry 96 94 L 04/29/18 15:50 04/29/18 16:14 Temperature Pulse Rate Respiratory Rate 15 Blood Pressure Pulse Oximetry 95 Intake & Output 04/28/18 04/29/18 04/29/18 18:59 06:59 18:59 Intake Total 606 / 606 255 / 255 4028 / 4028 Output Total 820 / 820 300 / 300 525 / 525 Balance -214 / -214 -45 / -45 3503 / 3503 Weight 84.9 kg Intake: IV 126 / 126 255 / 255 798 / 798 Heparin/NS PF Inj 1,000 ML @ 0 1 / 1 mls/hr .ROUTE .[facility] Rx#: [id number] Heparin/D5W 25,000 U/250 mL 25, 125 / 125 167 / 167 250 / 250 000 unit In 250 ml @ Per Protocol IV.CONT TITRATE PRN Rx #:[id number] Nitroglycerin Drip Premix 50 mg 88 / 88 88 / 88 In 250 ml @ 5 MCG/MIN 1.5 mls/ hr IV.CONT TITRATE PRN Rx#: [id number] Ofirmev Inj 1,000 mg In 100 ml 100 / 100 @ 400 mls/hr IV.SIG Q6H CHONG Rx# :[id number] Calcium Chloride Inj 1 GM In NS 110 / 110 Inj 100 ML @ 100 mls/hr IV.SIG PRN PRN Rx#:[id number] KCl 20 mEq Premix Inj 20 meq In 100 / 100 100 ml @ 0 mls/hr IV.SIG .[facility] Rx#:[id number] Ancef 1 GM Premix Inj 2 gm In 100 / 100 100 ml @ 0 mls/hr IV.SIG .STK- [facility] Rx#:[id number] Ancef 2 GM Premix Inj 2 gm In 50 / 50 50 ml @ 200 mls/hr IV.SIG Q8H [facility]ONG Rx#:[id number] Oral 480 / 480 Anesthesia Amount 2800 / 2800 Cell Saver Amount 430 / 430 Output: Urine 820 / 820 300 / 300 Estimated Blood Loss 200 / 200 Urine Amount (Catheter) 325 / 325 Indwelling Temp Sensing 325 / 325 Catheter Other: Date of Last Bowel Movement 04/28/18 04/29/18 # Bowel Movements 1 1 Narrative: GENERAL: Alert and oriented x3 talkative and cooperative SKIN: Warm and dry. HEAD: Normocephalic. Atraumatic EYES: No scleral icterus. No injection or drainage. PERRLA EOMI Oral mucosa is moist tongue is midline NECK: Supple, trachea midline. No JVD or lymphadenopathy. CARDIOVASCULAR: irregular rate and rhythm without murmurs, gallops, or rubs. RESPIRATORY: decreased breaths sounds to bilateral bases. No accessory muscle use. GASTROINTESTINAL: Abdomen soft, non-tender, nondistended. MUSCULOSKELETAL: No cyanosis, or edema. Insight and judgment is good mood and behavior is appropriate - Urinary Catheter Management Indwelling Temp Sensing Catheter Cath placed during this visit: yes Reason for continuing: Hourly intake/output Insertion date: 04/29/18 Insertion time: 07:53 Results - Labs CBC & Chem 7: 04/29/18 06:04/29/18 06:05 Laboratory Results - last 24 hr 04/28/18 04/28/18 04/28/18 06:11 15:40 16:06 WBC RBC Hgb Hct MCV MCH MCHC RDW Plt Count MPV Neut % (Auto) Lymph % (Auto) [place] % (Auto) Eos % (Auto) Baso % (Auto) Neut # (Auto) Lymph # (Auto) [place] # (Auto) Eos # (Auto) Baso # (Auto) WBC Differential Differential Comment APTT Sodium Potassium Chloride Carbon Dioxide Anion Gap BUN Creatinine Estimated GFR POC Glucose Random Glucose Hemoglobin A1c 6.2 H Calcium Phosphorus Magnesium Total Bilirubin AST ALT Alkaline Phosphatase Total Protein Albumin Triglycerides Cholesterol LDL Cholesterol, Calc HDL Cholesterol Cholesterol/HDL Ratio TSH Free T4 Nasal Screen MRSA (PCR) Not detected Blood Type A Positive Antibody Screen Negative MTS Gel Crossmatch See Detail 04/28/18 04/28/18 04/28/18 17:48 18:39 21:08 WBC RBC Hgb Hct MCV MCH MCHC RDW Plt Count MPV Neut % (Auto) Lymph % (Auto) [place] % (Auto) Eos % (Auto) Baso % (Auto) Neut # (Auto) Lymph # (Auto) [place] # (Auto) Eos # (Auto) Baso # (Auto) WBC Differential Differential Comment APTT 46.8 H Sodium Potassium Chloride Carbon Dioxide Anion Gap BUN Creatinine Estimated GFR POC Glucose 303 H 303 H Random Glucose Hemoglobin A1c Calcium Phosphorus Magnesium Total Bilirubin AST ALT Alkaline Phosphatase Total Protein Albumin Triglycerides Cholesterol LDL Cholesterol, Calc HDL Cholesterol Cholesterol/HDL Ratio TSH Free T4 Nasal Screen MRSA (PCR) Blood Type Antibody Screen MTS Gel Crossmatch 04/29/18 04/29/18 04/29/18 06:05 06:05 06:05 WBC 9.5 RBC 4.14 L Hgb 12.4 L Hct 35.5 L MCV 85.7 MCH 30.1 MCHC 35.1 RDW 14.5 Plt Count 204 MPV 7.7 Neut % (Auto) 91.2 H Lymph % (Auto) 5.0 L [place] % (Auto) 3.5 Eos % (Auto) 0.0 Baso % (Auto) 0.3 Neut # (Auto) 8.6 H Lymph # (Auto) 0.5 L [place] # (Auto) 0.3 Eos # (Auto) 0.0 Baso # (Auto) 0.0 WBC Differential . Differential Comment Auto diff final APTT 51.6 H Sodium 134 L Potassium 4.0 Chloride 99 Carbon Dioxide 27.8 Anion Gap 7 BUN 19 H Creatinine 0.92 Estimated GFR 79 L POC Glucose Random Glucose 170 H Hemoglobin A1c Calcium 8.6 Phosphorus 4.0 Magnesium 2.0 Total Bilirubin 0.6 AST 76 H ALT 55 Alkaline Phosphatase 61 Total Protein 7.1 Albumin 3.4 Triglycerides 100 Cholesterol 133 LDL Cholesterol, Calc 87 HDL Cholesterol 26.5 L Cholesterol/HDL Ratio 5.01 TSH 0.331 L Free T4 1.29 Nasal Screen MRSA (PCR) Blood Type Antibody Screen MTS Gel Crossmatch 04/29/18 04/29/18 04/29/18 06:05 13:59 14:20 WBC RBC Hgb Hct MCV MCH MCHC RDW Plt Count MPV Neut % (Auto) Lymph % (Auto) [place] % (Auto) Eos % (Auto) Baso % (Auto) Neut # (Auto) Lymph # (Auto) [place] # (Auto) Eos # (Auto) Baso # (Auto) WBC Differential Differential Comment APTT Sodium Potassium Chloride Carbon Dioxide Anion Gap BUN Creatinine Estimated GFR POC Glucose 166 H 111 H 110 Random Glucose Hemoglobin A1c Calcium Phosphorus Magnesium Total Bilirubin AST ALT Alkaline Phosphatase Total Protein Albumin Triglycerides Cholesterol LDL Cholesterol, Calc HDL Cholesterol Cholesterol/HDL Ratio TSH Free T4 Nasal Screen MRSA (PCR) Blood Type Antibody Screen MTS Gel Crossmatch 04/29/18 16:19 WBC RBC Hgb Hct MCV MCH MCHC RDW Plt Count MPV Neut % (Auto) Lymph % (Auto) [place] % (Auto) Eos % (Auto) Baso % (Auto) Neut # (Auto) Lymph # (Auto) [place] # (Auto) Eos # (Auto) Baso # (Auto) WBC Differential Differential Comment APTT Sodium Potassium Chloride Carbon Dioxide Anion Gap BUN Creatinine Estimated GFR POC Glucose 110 Random Glucose Hemoglobin A1c Calcium Phosphorus Magnesium Total Bilirubin AST ALT Alkaline Phosphatase Total Protein Albumin Triglycerides Cholesterol LDL Cholesterol, Calc HDL Cholesterol Cholesterol/HDL Ratio TSH Free T4 Nasal Screen MRSA (PCR) Blood Type Antibody Screen MTS Gel Crossmatch - Imaging Impressions Chest X-Ray 04/29/18 11:51 CONCLUSION: Slight CHF and possible left lung base consolidation . - Procedures Date of procedure: 04/28/18 Pre-op diagnosis: Non-ST elevation myocardial infarction Procedure: finish saw operator: Adams Coreas MD Procedures performed: 1. Fluoroscopy with interpretation 2. Coronary angiography Methods: Risks, benefits, and alternatives were discussed with the patient. Patient understood and consented to the procedure. Patient was brought into the cardiac catheterization lab and placed on the catheterization table. The patient's right wrist was prepped and draped in a sterile fashion. The right wrist was anesthetized with 1% lidocaine. Right wrist was cannulated and a 6 [place] 11 cm sheath was placed without difficulty. 200 mcg of intra-arterial nitroglycerin was administered and 5000 units of intravenous heparin. Coronary angiography: The left main coronary artery was selectively engaged with a 5 [place] JL 3.5 [place] catheter. The right coronary circulation was selectively engaged with a 5 [place] JR 5 [place] catheter. 1. Left main coronary artery has 95% bifurcation stenosis in the distal segment 2. Left anterior descending coronary artery has 95% proximal stenosis. The remainder the vessel has minor luminal irregularities 3. Left circumflex coronary artery has 99% ostial stenosis at the bifurcation. The obtuse marginal branches also have mild to moderate diffuse disease 4. Right coronary is a dominant vessel giving rise to the posterior descending branch. The right coronary artery is occluded proximally with left to right collaterals. Conclusions: 1. Severe left main and three-vessel coronary artery disease Plan: Guideline directed medical therapy. Sheath removed and Hemoband applied. Monitor for postprocedural complications. Cardiothoracic surgical consultation for consideration of coronary bypass surgery 2D echocardiogram pending Initiate heparin drip Case discussed with physician botany laboratory assistant. Patient is currently chest pain-free but may need to go to the operating room sooner than later given the severity of stenosis. 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 With report of decreased exercise tolerance, dyspnea on exertion, heart "pinching" on exertion Emergent Clampless off-pump Coronary Artery Bypass Grafting x 3 with Left Internal Mammary Artery (RAY) to Left Anterior Descending (LAD), reverse saphenous vein graft to obtuse Marginal 2 branch of the left Circumflex artery, reverse saphenous vein graft to the distal right Coronary artery Hypertension Diabetes Anxiety History of some venous clot versus procedure for which he had to take Coumadin while he was in the service. 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 Also has history of prior melanoma in right ear, chest. History of renal stones Plan: Positive cardiac catheterization will undergo CABG tomorrow April 29 Continue heparin drip. Continue nitroglycerin drip. Aspirin 325 mg p.o. daily. Cardiology was consulted. Had cardiac catheterization will undergo CABG 1-5 for multivessel coronary artery disease Emergent Clampless off-pump Coronary Artery Bypass Grafting x 3 with Left Internal Mammary Artery (RAY) to Left Anterior Descending (LAD), reverse saphenous vein graft to obtuse Marginal 2 branch of the left Circumflex artery, reverse saphenous vein graft to the distal right Coronary artery MONITOR SUGARS Resume home meds. However hold oral hypoglycemic medications We will monitor fingersticks. Cardiac diabetic diet ONCE ABLE TO TOLERATE A DIET DVT is on heparin. Code Status: FULL CODE Discussed Condition With: RN AND PT Discharge Planning: Pending clearance by cardiovascular surgery and cardiology
[2018-04-29] MEDS: Phenylephrine Inj 40 MG in Sodium Chlor 0.9% Inj 496 ML IV.CONT PRN (21:30)
[2018-04-30] MEDS ORDERED: DOPamine 800 MG/500 ML Premix 800 MG/500 ML PLAST..BAG IV.CONT PRN (00:14)
[2018-04-30] MEDS ORDERED: Lidocaine/D5W 2000 mg/500 mL 2,000 MG/500 ML BAG ONE (02:59)
[2018-04-30] MEDS: Ketorolac Inj 30 MG/ML (IVP) Vial IV.PUSH PRN ×2 (04:07→09:18)
[2018-04-30] MEDS: Phenylephrine Inj 40 MG in Sodium Chlor 0.9% Inj 496 ML IV.CONT PRN (04:40)
[2018-04-30] MEDS: ceFAZolin 2 GM Premix Inj 2 GM/50 ML PIGGYBACK IV.SIG SCH ×3 (05:11→21:48)
[2018-04-30 05:15] LABS: Hematocrit 33.3 % (39.0-51.0); Hemoglobin 11.6 gm/dL (13.0-17.0); Mean Corpuscular Hemoglobin 30.2 pg (27.0-34.0); Mean Corpuscular Volume 86.2 fL (80.0-100.0); Mean Platelet Volume 7.5 fL (7.0-11.0); Platelet Count 201 th/mm3 (150-450); Red Blood Count 3.86 mil/mm3 (4.50-5.90); Red Cell Distribution Width 14.5 % (11.6-17.2); White Blood Count 7.7 th/mm3 (4.0-11.0)
[2018-04-30 05:43] LABS: Calcium 7.1 mg/dL (8.5-10.1); Carbon Dioxide 24.4 meq/L (21.0-32.0); Magnesium 2.3 mg/dL (1.5-2.5); Potassium 4.5 meq/L (3.5-5.1)
[2018-04-30 05:52] LABS: Albumin 3.1 g/dL (3.4-5.0); Calcium-Albumin Corrected 7.8 mg/dL (8.5-10.1)
--- NOTE | 2018-04-30 06:43 | XR ---
EXAM DATE: 04/30/2018 6:14 AM EST AGE/SEX: 82 years / Male INDICATIONS: Shortness of breath, the patient is status post extubation.. CLINICAL DATA: This is the patient's subsequent encounter. Patient reports that signs and symptoms h ave been present for 3 days and indicates a pain score of 0/10. MEDICAL/SURGICAL HISTORY: Congestive heart failure. Diabetes mellitus type II. Hypercholester olemia. A-fib. DVT. . Tonsillectomy. Lithotripsy. Vascular surgery, right leg. COMPARISON: [facility] [place], CHEST 1V SINGLE AP, 04/29/2018. . FINDINGS: A single AP semierect view of the chest was obtained and demonstrates interval extubation and removal of the nasogastric tube. The chest tube and left-sided chest tube remain in place with no pneumothor ax. The right internal jugular central venous line is unchanged. The heart size remains enlarged. Haz y bibasilar opacity is present with mild blunting of the left costophrenic angle. The left hemidiaphr agm remains partially obscured. CONCLUSION: 1. Interval extubation and removal of nasogastric tube. 2. Hazy opacity is again noted at the lung bases with small left effusion. The heart size remains en larged. Electronically signed by: Jose Fair MD Board Certified Radiologist 04/30/2018 6:42 AM EST
[2018-04-30] MEDS: Calcium Chloride Inj 1 GM in Sodium Chlor 0.9% Inj 100 ML IV.SIG PRN (07:33)
[2018-04-30] MEDS ORDERED: Digoxin Inj 500 MCG/2 ML Ampul IV.PUSH ONE ×3 (08:13→13:30)
[2018-04-30] MEDS: Metoprolol Tartrate 25 MG Tablet PO SCH ×2 (09:21→22:01)
[2018-04-30] MEDS: Docusate Sodium 100 MG Capsule PO SCH (09:21)
--- NOTE | 2018-04-30 09:27 | P.PNCV ---
- Note Subjective/Hospital Course: 04/29 SURGICAL PROCEDURE 1. Emergent Clampless off-pump Coronary Artery Bypass Grafting x 3 with Left Internal Mammary Artery (RAY) to Left Anterior Descending (LAD), reverse saphenous vein graft to obtuse Marginal 2 branch of the left Circumflex artery, reverse saphenous vein graft to the distal right Coronary artery 2. Left leg Endoscopic Vein [place] 3. Intraoperative Vein Mapping 04/30 Doing well Chronic atrial fibrillation. Tachycardic this morning Will put on digoxin protocol Weaning dopamine as tolerated Maintain in ICU Objective: Vital Signs - 24 hr 04/29/18 12:00 04/29/18 12:29 04/29/18 12:30 Temperature Pulse Rate 85 Respiratory Rate 12 12 Blood Pressure Pulse Oximetry 96 04/29/18 13:11 04/29/18 14:12 04/29/18 14:17 Temperature 97.5 F L Pulse Rate 89 89 Respiratory Rate Blood Pressure 107/79 99/53 L Pulse Oximetry 04/29/18 14:22 04/29/18 14:53 04/29/18 15:10 Temperature 97.3 F L 97.3 F L Pulse Rate 82 Respiratory Rate 16 Blood Pressure 107/79 Pulse Oximetry 96 96 04/29/18 15:15 04/29/18 15:27 04/29/18 15:50 Temperature Pulse Rate 91 H Respiratory Rate 20 Blood Pressure Pulse Oximetry 94 L 95 04/29/18 16:14 04/29/18 19:00 04/29/18 19:35 Temperature 98.1 F Pulse Rate 108 H 104 H Respiratory Rate 15 16 Blood Pressure 120/82 Pulse Oximetry 97 04/29/18 20:00 04/29/18 21:05 04/29/18 21:37 Temperature Pulse Rate 116 H Respiratory Rate 16 20 Blood Pressure Pulse Oximetry 97 96 97 04/29/18 23:00 04/30/18 00:00 04/30/18 01:00 Temperature 97.8 F Pulse Rate 108 H Respiratory Rate 16 Blood Pressure 90/63 L Pulse Oximetry 96 96 96 04/30/18 03:00 04/30/18 04:40 04/30/18 05:30 Temperature 99.8 F H Pulse Rate 108 H Respiratory Rate 16 16 16 Blood Pressure 140/82 Pulse Oximetry 93 L 04/30/18 07:00 04/30/18 08:00 04/30/18 08:20 Temperature 99.6 F Pulse Rate 130 H Respiratory Rate 20 Blood Pressure 138/72 Pulse Oximetry 94 L 93 L 92 L 04/30/18 08:21 Temperature Pulse Rate 121 H Respiratory Rate 20 Blood Pressure Pulse Oximetry Labs: Laboratory Results - last 12 hr 04/29/18 04/29/18 04/30/18 21:37 23:44 01:42 WBC RBC Hgb Hct MCV MCH MCHC RDW Plt Count MPV Sodium Potassium Chloride Carbon Dioxide Anion Gap BUN Creatinine Estimated GFR POC Glucose 99 110 126 H Random Glucose Calcium Calcium Adj for Albumin Magnesium Albumin 04/30/18 04/30/18 04/30/18 03:41 04:54 04:54 WBC 7.7 RBC 3.86 L Hgb 11.6 L Hct 33.3 L MCV 86.2 MCH 30.2 MCHC 35.0 RDW 14.5 Plt Count 201 MPV 7.5 Sodium 136 Potassium 4.5 Chloride 105 Carbon Dioxide 24.4 Anion Gap 7 BUN 19 H Creatinine 1.00 Estimated GFR 72 L POC Glucose 102 Random Glucose 111 H Calcium 7.1 L* D Calcium Adj for Albumin 7.8 L Magnesium 2.3 Albumin 3.1 L 04/30/18 04/30/18 05:32 07:28 WBC RBC Hgb Hct MCV MCH MCHC RDW Plt Count MPV Sodium Potassium Chloride Carbon Dioxide Anion Gap BUN Creatinine Estimated GFR POC Glucose 117 H 107 Random Glucose Calcium Calcium Adj for Albumin Magnesium Albumin Result Diagrams: 04/30/18 04:54 04/30/18 04:54
[2018-04-30] MEDS ORDERED: Dextrose 50% in Water 50 ML Vial IV.PUSH PRN (09:28)
--- NOTE | 2018-04-30 11:14 | P.PNIM ---
Subjective Interval history: 82-year-old male who underwent CABG on 04/29/2018 is sitting up in chair today doing well postop. He seems alert and oriented x3 and has no significant complaints. Physical Exam Vital signs: Last Vital Signs Temp 99.6 F 04/30/18 07:00 Pulse 121 H 04/30/18 08:21 Resp 5 L 04/30/18 10:05 BP 138/72 04/30/18 07:00 Pulse Ox 92 L 04/30/18 08:20 Intake & Output 04/28/18 04/29/18 04/30/18 05/01/18 06:59 06:59 06:59 06:59 Intake Total 861 / 861 7515 / 7515 310 / 310 Output Total 1075 / 1075 1120 / 1120 1870 / 1870 Balance -1075 / -1075 -259 / -259 5645 / 5645 310 / 310 Weight 84.3 kg 84.9 kg 86 kg Narrative: GENERAL: Alert and oriented x3 talkative and cooperative SKIN: Warm and dry. HEAD: Normocephalic. Atraumatic EYES: No scleral icterus. No injection or drainage. PERRLA EOMI Oral mucosa is moist tongue is midline NECK: Supple, trachea midline. No JVD or lymphadenopathy. CARDIOVASCULAR: irregular rate and rhythm without murmurs, gallops, or rubs. RESPIRATORY: decreased breaths sounds to bilateral bases. No accessory muscle use. GASTROINTESTINAL: Abdomen soft, non-tender, nondistended. MUSCULOSKELETAL: No cyanosis, no edema Insight and judgment is good mood and behavior is appropriate Urinary Catheter Management Indwelling Temp Sensing Catheter: Cath placed during this visit: yes Urethral indwelling: Yes Reason for continuing: Chronic Urinary Retention Insertion date: 04/29/18 Insertion time: 07:53 Results Labs CBC & Chem 7: 04/30/18 04:54 04/30/18 04:54 Imaging Imaging: Impressions Chest X-Ray 04/29/18 11:51 CONCLUSION: Slight CHF and possible left lung base consolidation . Chest X-Ray 04/30/18 05:00 CONCLUSION: 1. Interval extubation and removal of nasogastric tube. 2. Hazy opacity is again noted at the lung bases with small left effusion. The heart size remains enlarged. Procedures Procedures: Date of procedure: 04/28/18 Pre-op diagnosis: Non-ST elevation myocardial infarction Procedure: electric accounting machine operator: Adams Coreas MD Procedures performed: 1. Fluoroscopy with interpretation 2. Coronary angiography Methods: Risks, benefits, and alternatives were discussed with the patient. Patient understood and consented to the procedure. Patient was brought into the cardiac catheterization lab and placed on the catheterization table. The patient's right wrist was prepped and draped in a sterile fashion. The right wrist was anesthetized with 1% lidocaine. Right wrist was cannulated and a 6 [place] 11 cm sheath was placed without difficulty. 200 mcg of intra-arterial nitroglycerin was administered and 5000 units of intravenous heparin. Coronary angiography: The left main coronary artery was selectively engaged with a 5 [place] JL 3.5 [place] catheter. The right coronary circulation was selectively engaged with a 5 [place] JR 5 [place] catheter. 1. Left main coronary artery has 95% bifurcation stenosis in the distal segment 2. Left anterior descending coronary artery has 95% proximal stenosis. The remainder the vessel has minor luminal irregularities 3. Left circumflex coronary artery has 99% ostial stenosis at the bifurcation. The obtuse marginal branches also have mild to moderate diffuse disease 4. Right coronary is a dominant vessel giving rise to the posterior descending branch. The right coronary artery is occluded proximally with left to right collaterals. Conclusions: 1. Severe left main and three-vessel coronary artery disease Plan: Guideline directed medical therapy. Sheath removed and Hemoband applied. Monitor for postprocedural complications. Cardiothoracic surgical consultation for consideration of coronary bypass surgery 2D echocardiogram pending Initiate heparin drip Case discussed with physician purchasing assistant. Patient is currently chest pain-free but may need to go to the operating room sooner than later given the severity of stenosis. Documented By: Jake Coreas MD Assessment and Plan Plan NSTEMI, triple vessel disease, s/p CABG on 04/29/18 Patient is doing well postop, up in chair today Continuing aspirin, heparin Continue physical therapy work Appreciate intervention of cardiothoracic surgeon Appreciate cardiology Tachycardia Likely some cardiac excitation from recent LA and recent surgery Single dose of digoxin to 50 mg IV given Continue following on telemetry, patient should remain in CVICU Hypotension Patient is still requiring some low-dose pressors to maintain systolics above 90 Patient should remain in CV ICU until off of pressors Type 2 diabetes Accu-Cheks with sliding scale insulin coverage Diabetic diet h/o prostate cancer Patient has been treated with Lupron, continue after discharge h/o left ear melanoma History of prior melanoma and right ear and chest Patient had left ear melanoma removed last year h/o nephrolithiasis No recent episodes, consider an overall picture back pain occurs DVT Prophylaxis Patient has history of clot versus procedure, took Coumadin while he was in the service Continue heparin Progress Note: Quality VTE Deep Vein Thrombosis/Pulmonary Embolism Present on Admission: No
[2018-04-30] MEDS: Insulin NovoLIN Regular Correctional Sugar Inj SQ SCH ×3 (11:36→21:51)
[2018-04-30] MEDS: Montelukast 10 MG Tablet PO SCH (17:13)
[2018-05-01] MEDS: Docusate Sodium 100 MG Capsule PO SCH ×2 (08:22→21:01)
[2018-05-01] MEDS: Digoxin 125 MCG Tablet PO SCH (08:22)
[2018-05-01] MEDS: Insulin NovoLIN Regular Correctional Sugar Inj SQ SCH (08:23)
[2018-05-01] MEDS: Metoprolol Tartrate 25 MG Tablet PO SCH (08:23)
[2018-05-01] MEDS ORDERED: Dextrose 50% in Water 50 ML Vial IV.PUSH PRN (09:07)
[2018-05-01] MEDS ORDERED: Bisacodyl 10 MG Supp RECTAL PRN (09:07)
[2018-05-01] MEDS ORDERED: Sod Phosphate/Sod Biphosphate (Adult) Enema 133 ML Bottle RECTAL PRN (09:07)
[2018-05-01] MEDS ORDERED: Metoprolol Tartrate 25 MG Tablet PO ONE (09:30)
[2018-05-01] MEDS: glipiZIDE 5 MG Tablet PO SCH ×2 (09:46→21:01)
[2018-05-01] MEDS: Polyethylene Glycol 3350 17 GM Packet PO SCH (09:52)
--- NOTE | 2018-05-01 10:00 | P.DIET ---
Nutritional Evaluation Screening comments: MDC for Diet Education s/p CABG x 3 on 04/29 received. Patient Navigator to provide education. Consult RD if complexities with diet education arise.
--- NOTE | 2018-05-01 10:57 | P.PNCV ---
- Note Subjective/Hospital Course: 82[facility] Dr[facility] Coreas, who presented himself to the emergency room with chest pain that he has had for the last couple of days. He has had some shortness of breath with minimal exertion over the past couple of months. He has also a longstanding history of atrial fibrillation where he was diagnosed about 3 years ago. He has refused anticoagulation. Upon arrival, his EKG showed atrial fibrillation, heart rate in the 90s, T-wave inversion, anterior lateral leads. Troponin elevated at 4.5. Ruled in for a non-STEMI. His chest x-ray showed some CHF with some volume overload and was treated with Lasix IV. The patient underwent cardiac catheterization by Dr. Coreas today, which showed left main disease of 90%, proximal LAD 90, the mid distal LAD 95%, the RCA 100%. We were consulted to evaluate for coronary artery bypass grafting. The echocardiogram showed ejection fraction approximately 40% to 45% with some mild mitral regurgitation. PAST MEDICAL HISTORY: Significant for diabetes mellitus, oral medications. Chronic atrial fibrillation. Prior refusal for anticoagulation. 04/29 SURGICAL PROCEDURE 1. Emergent Clampless off-pump Coronary Artery Bypass Grafting x 3 with Left Internal Mammary Artery (RAY) to Left Anterior Descending (LAD), reverse saphenous vein graft to obtuse Marginal 2 branch of the left Circumflex artery, reverse saphenous vein graft to the distal right Coronary artery 2. Left leg Endoscopic Vein [place] 04/30 Doing well Chronic atrial fibrillation. Tachycardic this morning Will put on digoxin protocol Weaning dopamine as tolerated Maintain in ICU 05/01 pt remains in afib rate 100-120 very congested cough / difficulty expectorating add mucomyst to nebs / chest pt / OOB gentle diuresis , increase BB, consider keith in am leave in CVICU for now / wean off simple face mask Objective: Vital Signs - 24 hr 04/30/18 11:00 04/30/18 13:11 04/30/18 14:03 Temperature 98.5 F Pulse Rate 135 H 128 H Respiratory Rate 20 Blood Pressure 98/44 L Pulse Oximetry 92 L 95 04/30/18 14:04 04/30/18 14:47 04/30/18 16:12 Temperature 98.3 F Pulse Rate 102 H 119 H Respiratory Rate 20 17 20 Blood Pressure 92/77 L Pulse Oximetry 92 L 04/30/18 17:48 04/30/18 19:00 04/30/18 19:50 Temperature 97.8 F Pulse Rate 93 H Respiratory Rate 18 22 Blood Pressure 88/54 L Pulse Oximetry 94 L 94 L 04/30/18 20:00 04/30/18 21:13 04/30/18 23:00 Temperature 97.9 F Pulse Rate 101 H 102 H Respiratory Rate 20 24 Blood Pressure 99/55 L Pulse Oximetry 96 96 92 L 05/01/18 03:00 05/01/18 03:59 05/01/18 07:00 Temperature 97.3 F L 99 F Pulse Rate 109 H 97 H 104 H Respiratory Rate 24 20 17 Blood Pressure 123/68 113/58 L Pulse Oximetry 94 L 91 L 05/01/18 07:23 05/01/18 08:00 05/01/18 09:00 Temperature Pulse Rate 130 H 120 H Respiratory Rate Blood Pressure Pulse Oximetry 98 91 L 05/01/18 09:16 05/01/18 09:59 Temperature Pulse Rate 106 H 101 H Respiratory Rate 22 Blood Pressure Pulse Oximetry GENERAL: A&O x 3 SKIN: Warm and dry. prevena dressing to chest , incision intact to left leg HEAD: Normocephalic. EYES: No scleral icterus. No injection or drainage. NECK: Supple, trachea midline. No JVD or lymphadenopathy. CARDIOVASCULAR: irregular rate and rhythm without murmurs, gallops, or rubs. RESPIRATORY: Breath sounds equal bilaterally. No accessory muscle use. coarse bilateral breath sounds , faint exp wheeze GASTROINTESTINAL: Abdomen soft, non-tender, nondistended. MUSCULOSKELETAL: No cyanosis, or edema. BACK: Nontender without obvious deformity. No CVA tenderness. Labs: Laboratory Results - last 12 hr 04/28/18 05/01/18 15:40 07:44 POC Glucose 119 H MTS Gel Crossmatch See Detail Result Diagrams: 04/30/18 04:54 04/30/18 04:54 Cardiovascular: afib - Plan (1) Diabetes mellitus (3) S/P CABG x 3 Plan: Neuro : will add prn xanax for anxiety [facility] CV: ASA, statin , BB , digoxin, plavix add diuresis nicolasa v score 6 will discuss using xarelto or eliquis with pt / has refused anticoagulation in the past add low dose KEITH in am Resp: pulm toileting add mucomyst nebs Nebs ezpap acapella, chest CPT wean 02 as tolerated leave chest tubes in / 240cc/12hrs GI: add motility meds Endo: insulin sliding scale diabetic diet add home glipizide PT/OT OOB eval for rehab at discharge Keep in CVICU for now (1) Diabetes mellitus Qualifiers: 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
--- NOTE | 2018-05-01 11:42 | XR ---
EXAM DATE: 05/01/2018 11:22 AM EST AGE/SEX: 82 years / Male INDICATIONS: Evaluate for pneumonia. CLINICAL DATA: This is the patient's subsequent encounter. Patient reports that signs and symptoms h ave been present for 4 - 6 days and indicates a pain score of 0/10. MEDICAL/SURGICAL HISTORY: Diabetes mellitus type II. Hypertension. CABG. COMPARISON: [facility], CHEST 1V SINGLE AP, 04/30/2018. . FINDINGS: Central line and chest tube in good position. The heart is enlarged. Mild residual edema is present. Moderate parental changes left base. Trace ple ural effusion on the right. CONCLUSION: Stable with moderate parenchymal changes left base. Electronically signed by: Brian Marroquin MD Board Certified Radiologist 05/01/2018 11:40 AM EST
[2018-05-01] MEDS: Insulin NovoLOG Aspart Correctional Sugar Inj SQ SCH ×3 (11:54→21:05)
[2018-05-01] MEDS ORDERED: hydrALAZINE HCl Inj 20 MG/ML Vial ONE (16:31)
[2018-05-01] MEDS: RESP: Acetylcysteine 10% 4 ML Neb NEB SCH ×2 (16:56→23:08)
[2018-05-01] MEDS: Montelukast 10 MG Tablet PO SCH (17:51)
[2018-05-01] MEDS: Metoprolol Tartrate 50 MG Tablet PO SCH (21:02)
[2018-05-02] MEDS: RESP: Acetylcysteine 10% 4 ML Neb NEB SCH ×3 (03:43→21:36)
[2018-05-02 05:13] LABS: Baso % (Auto) 0.3 % (0.0-2.0); Eos # (Auto) 0.1 th/mm3 (0.0-0.4); Eos % (Auto) 0.6 % (0.0-4.0); Hematocrit 33.1 % (39.0-51.0); Hemoglobin 11.4 gm/dL (13.0-17.0); Lymph % (Auto) 11.5 % (9.0-44.0); Mean Corpuscular HGB Conc 34.4 % (32.0-36.0); Mean Corpuscular Hemoglobin 29.8 pg (27.0-34.0); Mean Corpuscular Volume 86.7 fL (80.0-100.0); Mean Platelet Volume 7.6 fL (7.0-11.0); Mono # (Auto) 0.8 th/mm3 (0.0-0.9); Mono % (Auto) 9.2 % (0.0-8.0); Neut # (Auto) 6.7 th/mm3 (1.8-7.7); Neut % (Auto) 78.4 % (16.0-70.0); Platelet Count 219 th/mm3 (150-450); Red Blood Count 3.82 mil/mm3 (4.50-5.90); Red Cell Distribution Width 14.2 % (11.6-17.2); White Blood Count 8.6 th/mm3 (4.0-11.0)
[2018-05-02 05:28] LABS: Anion Gap 7 meq/L (5-15); Blood Urea Nitrogen 19 mg/dL (7-18); Calcium 7.9 mg/dL (8.5-10.1); Carbon Dioxide 27.9 meq/L (21.0-32.0); Chloride 98 meq/L (98-107); Glomerular Filtration Rate Greater Than 89 mL/min (>89); Glucose,Random 106 mg/dL (74-106); Magnesium 2.2 mg/dL (1.5-2.5); Potassium 4.3 meq/L (3.5-5.1); Sodium 133 meq/L (136-145)
[2018-05-02 05:41] LABS: Digoxin 1.5 ng/mL (0.8-2.0)
[2018-05-02] MEDS: Insulin NovoLOG Aspart Correctional Sugar Inj SQ SCH ×4 (07:36→20:31)
[2018-05-02] MEDS: Docusate Sodium 100 MG Capsule PO SCH ×2 (08:02→20:31)
[2018-05-02] MEDS: Digoxin 125 MCG Tablet PO SCH (08:03)
[2018-05-02] MEDS: glipiZIDE 5 MG Tablet PO SCH ×2 (08:03→20:30)
[2018-05-02] MEDS: Metoprolol Tartrate 50 MG Tablet PO SCH ×3 (08:03→17:58)
[2018-05-02] MEDS: Polyethylene Glycol 3350 17 GM Packet PO SCH (08:03)
[2018-05-02] MEDS: Multivitamin/Minerals Therapeutic Tablet PO SCH (08:04)
--- NOTE | 2018-05-02 17:00 | P.PNCV ---
- Note Subjective/Hospital Course: 82-[facility] Dr[facility] Coreas, who presented himself to the emergency room with chest pain that he has had for the last couple of days. He has had some shortness of breath with minimal exertion over the past couple of months. He has also a longstanding history of atrial fibrillation where he was diagnosed about 3 years ago. He has refused anticoagulation. Upon arrival, his EKG showed atrial fibrillation, heart rate in the 90s, T-wave inversion, anterior lateral leads. Troponin elevated at 4.5. Ruled in for a non-STEMI. His chest x-ray showed some CHF with some volume overload and was treated with Lasix IV. The patient underwent cardiac catheterization by Dr. Coreas today, which showed left main disease of 90%, proximal LAD 90, the mid distal LAD 95%, the RCA 100%. We were consulted to evaluate for coronary artery bypass grafting. The echocardiogram showed ejection fraction approximately 40% to 45% with some mild mitral regurgitation. PAST MEDICAL HISTORY: Significant for diabetes mellitus, oral medications. Chronic atrial fibrillation. Prior refusal for anticoagulation. 04/29 SURGICAL PROCEDURE 1. Emergent Clampless off-pump Coronary Artery Bypass Grafting x 3 with Left Internal Mammary Artery (RAY) to Left Anterior Descending (LAD), reverse saphenous vein graft to obtuse Marginal 2 branch of the left Circumflex artery, reverse saphenous vein graft to the distal right Coronary artery 2. Left leg Endoscopic Vein [place] 04/30 Doing well Chronic atrial fibrillation. Tachycardic this morning Will put on digoxin protocol Weaning dopamine as tolerated Maintain in ICU 05/01 pt remains in afib rate 100-120 very congested cough / difficulty expectorating add mucomyst to nebs / chest pt / OOB gentle diuresis , increase BB, consider keith in am leave in CVICU for now / wean off simple face mask 05/02 weaned down to 4 liters continue pulm toileting nebs ezpap , mucomyst gentle diuresis add keith nicolasa score of 6 add eliquis/ discussed with pt Objective: Vital Signs - 24 hr 05/01/18 17:00 05/01/18 18:09 05/01/18 18:16 Temperature Pulse Rate 120 H 120 H Respiratory Rate 20 Blood Pressure Pulse Oximetry 05/01/18 20:00 05/01/18 22:15 05/02/18 00:00 Temperature 98.2 F Pulse Rate 116 H 107 H 96 H Respiratory Rate 20 20 20 Blood Pressure 94/59 L 99/56 L Pulse Oximetry 94 L 93 L 05/02/18 03:45 05/02/18 04:00 05/02/18 07:57 Temperature 98.4 F Pulse Rate 101 H 114 H Respiratory Rate 18 20 Blood Pressure 121/71 Pulse Oximetry 97 97 05/02/18 08:00 05/02/18 08:25 05/02/18 11:37 Temperature 98.4 F Pulse Rate 127 H 125 H Respiratory Rate 18 20 Blood Pressure 145/89 H Pulse Oximetry 97 97 97 05/02/18 11:38 05/02/18 11:39 05/02/18 13:27 Temperature 98.6 F Pulse Rate 90 90 85 Respiratory Rate 18 18 Blood Pressure 118/62 Pulse Oximetry 97 05/02/18 16:00 Temperature 98.4 F Pulse Rate 106 H Respiratory Rate 18 Blood Pressure 150/81 H Pulse Oximetry 97 GENERAL: A&O x 3 SKIN: Warm and dry. prevena dressing to chest , incision intact to left leg HEAD: Normocephalic. EYES: No scleral icterus. No injection or drainage. NECK: Supple, trachea midline. No JVD or lymphadenopathy. CARDIOVASCULAR: irregular r rate and rhythm without murmurs, gallops, or rubs. mild edema RESPIRATORY: coarse bilateral breath sounds, bibasilar crackles chest tube dc without difficulty GASTROINTESTINAL: Abdomen soft, non-tender, nondistended. MUSCULOSKELETAL: No cyanosis, or edema. BACK: Nontender without obvious deformity. No CVA tenderness. Labs: Laboratory Results - last 12 hr 05/02/18 05/02/18 05/02/18 04:45 04:45 07:32 WBC 8.6 RBC 3.82 L Hgb 11.4 L Hct 33.1 L MCV 86.7 MCH 29.8 MCHC 34.4 RDW 14.2 Plt Count 219 MPV 7.6 Neut % (Auto) 78.4 H Lymph % (Auto) 11.5 Richardson % (Auto) 9.2 H Eos % (Auto) 0.6 Baso % (Auto) 0.3 Neut # (Auto) 6.7 Lymph # (Auto) 1.0 Richardson # (Auto) 0.8 Eos # (Auto) 0.1 Baso # (Auto) 0.0 WBC Differential . Differential Comment Auto diff final Sodium 133 L Potassium 4.3 Chloride 98 Carbon Dioxide 27.9 Anion Gap 7 BUN 19 H Creatinine 0.75 Estimated GFR Greater than 89 POC Glucose 106 Random Glucose 106 Calcium 7.9 L D Magnesium 2.2 Digoxin 1.5 05/02/18 11:12 WBC RBC Hgb Hct MCV MCH MCHC RDW Plt Count MPV Neut % (Auto) Lymph % (Auto) Richardson % (Auto) Eos % (Auto) Baso % (Auto) Neut # (Auto) Lymph # (Auto) Richardson # (Auto) Eos # (Auto) Baso # (Auto) WBC Differential Differential Comment Sodium Potassium Chloride Carbon Dioxide Anion Gap BUN Creatinine Estimated GFR POC Glucose 215 H Random Glucose Calcium Magnesium Digoxin Result Diagrams: 05/02/18 04:45 05/02/18 04:45 - Plan (1) Diabetes mellitus (3) S/P CABG x 3 Plan: Neuro : will add prn xanax for anxiety on [facility] CV: ASA, statin , BB , digoxin, add diuresis nicolasa v score 6 eliquis started add low dose KEITH in am Resp: pulm toileting continue mucomyst nebs Nebs ezpap acapella, chest CPT wean 02 as tolerated chest tubes dc GI: motility meds Endo: insulin sliding scale diabetic diet home glipizide PT/OT OOB eval for rehab at discharge transferred to [facility] unit (1) Diabetes mellitus Qualifiers: 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
[2018-05-02] MEDS: Montelukast 10 MG Tablet PO SCH (18:17)
[2018-05-03 04:36] LABS: Anion Gap 6 meq/L (5-15); Blood Urea Nitrogen 19 mg/dL (7-18); Calcium 7.6 mg/dL (8.5-10.1); Carbon Dioxide 27.1 meq/L (21.0-32.0); Chloride 100 meq/L (98-107); Glomerular Filtration Rate Greater Than 89 mL/min (>89); Glucose,Random 98 mg/dL (74-106); Magnesium 2.4 mg/dL (1.5-2.5); Potassium 4.4 meq/L (3.5-5.1); Sodium 133 meq/L (136-145)
[2018-05-03] MEDS: RESP: Acetylcysteine 10% 4 ML Neb NEB SCH ×2 (05:17→10:42)
--- NOTE | 2018-05-03 06:13 | XR ---
EXAM DATE: 05/03/2018 5:43 AM EST AGE/SEX: 82 years / Male INDICATIONS: Chest tube removal r/o PTX. CLINICAL DATA: This is the patient's subsequent encounter. Patient reports that signs and symptoms h ave been present for 4 - 6 days and indicates a pain score of 0/10. MEDICAL/SURGICAL HISTORY: Diabetes mellitus type II. Hypertension. CABG. [place] [facility] [place]. . FINDINGS: A single AP view of the chest demonstrates mild clearing of the left basilar consolidation. Right harpreet g is clear. Heart remains enlarged. Median sternotomy wires noted. CONCLUSION: Some improvement in the left basilar consolidation. Stable cardiomegaly. Electronically signed by: Yusef Vo MD Board Certified Radiologist 05/03/2018 6:11 AM EST
[2018-05-03] MEDS: Metoprolol Tartrate 50 MG Tablet PO SCH ×2 (06:14→10:11)
[2018-05-03] MEDS ORDERED: Metoprolol Tartrate 50 MG Tablet PO ONE ×2 (07:00→12:00)
[2018-05-03] MEDS ORDERED: Lisinopril 20 MG Tablet PO SCH (09:00)
[2018-05-03] MEDS: Polyethylene Glycol 3350 17 GM Packet PO SCH (10:08)
[2018-05-03] MEDS: Docusate Sodium 100 MG Capsule PO SCH ×2 (10:10→20:58)
[2018-05-03] MEDS: glipiZIDE 5 MG Tablet PO SCH ×2 (10:11→20:58)
[2018-05-03] MEDS: Multivitamin/Minerals Therapeutic Tablet PO SCH (10:11)
[2018-05-03] MEDS: Insulin NovoLOG Aspart Correctional Sugar Inj SQ SCH ×4 (10:13→20:59)
[2018-05-03] MEDS: Lisinopril 10 MG Tablet PO SCH (11:05)
--- NOTE | 2018-05-03 14:16 | P.PNCV ---
- Note Subjective/Hospital Course: 82-[facility] Dr[facility] Coreas, who presented himself to the emergency room with chest pain that he has had for the last couple of days. He has had some shortness of breath with minimal exertion over the past couple of months. He has also a longstanding history of atrial fibrillation where he was diagnosed about 3 years ago. He has refused anticoagulation. Upon arrival, his EKG showed atrial fibrillation, heart rate in the 90s, T-wave inversion, anterior lateral leads. Troponin elevated at 4.5. Ruled in for a non-STEMI. His chest x-ray showed some CHF with some volume overload and was treated with Lasix IV. The patient underwent cardiac catheterization by Dr. Coreas today, which showed left main disease of 90%, proximal LAD 90, the mid distal LAD 95%, the RCA 100%. We were consulted to evaluate for coronary artery bypass grafting. The echocardiogram showed ejection fraction approximately 40% to 45% with some mild mitral regurgitation. PAST MEDICAL HISTORY: Significant for diabetes mellitus, oral medications. Chronic atrial fibrillation. Prior refusal for anticoagulation. 04/29 SURGICAL PROCEDURE 1. Emergent Clampless off-pump Coronary Artery Bypass Grafting x 3 with Left Internal Mammary Artery (RAY) to Left Anterior Descending (LAD), reverse saphenous vein graft to obtuse Marginal 2 branch of the left Circumflex artery, reverse saphenous vein graft to the distal right Coronary artery 2. Left leg Endoscopic Vein [place] 04/30 Doing well Chronic atrial fibrillation. Tachycardic this morning Will put on digoxin protocol Weaning dopamine as tolerated Maintain in ICU 05/01 pt remains in afib rate 100-120 very congested cough / difficulty expectorating add mucomyst to nebs / chest pt / OOB gentle diuresis , increase BB, consider keith in am leave in CVICU for now / wean off simple face mask 05/02 weaned down to 4 liters continue pulm toileting nebs ezpap , mucomyst gentle diuresis add keith nicolasa score of 6 add eliquis/ discussed with pt 05/03 pt coughing up thick whitish yellow sputum check sputum and start doxycycline continue nebs ezpap wean 02 , increase BB , continue diuresis for now Objective: Vital Signs - 24 hr 05/02/18 15:00 05/02/18 16:00 05/02/18 17:00 Temperature 98.4 F Pulse Rate 95 H 106 H 110 H Respiratory Rate 18 Blood Pressure 150/81 H Pulse Oximetry 97 05/02/18 18:00 05/02/18 19:00 05/02/18 19:30 Temperature 98.1 F Pulse Rate 108 H 108 H 112 H Respiratory Rate 20 Blood Pressure 102/58 L Pulse Oximetry 94 L 05/02/18 20:00 05/02/18 21:00 05/02/18 21:39 Temperature Pulse Rate 112 H 108 H 106 H Respiratory Rate 16 Blood Pressure Pulse Oximetry 96 05/02/18 22:00 05/02/18 23:00 05/03/18 00:00 Temperature 98.1 F Pulse Rate 116 H 114 H 118 H Respiratory Rate 20 Blood Pressure 110/69 Pulse Oximetry 96 05/03/18 01:00 05/03/18 02:00 05/03/18 03:00 Temperature Pulse Rate 112 H 118 H 112 H Respiratory Rate Blood Pressure Pulse Oximetry 96 05/03/18 04:00 05/03/18 05:00 05/03/18 05:16 Temperature 98.4 F Pulse Rate 120 H 118 H 113 H Respiratory Rate 18 20 Blood Pressure 119/66 Pulse Oximetry 96 93 L 05/03/18 06:00 05/03/18 06:10 05/03/18 07:00 Temperature Pulse Rate 136 H 136 H 122 H Respiratory Rate 22 Blood Pressure 124/64 Pulse Oximetry 95 05/03/18 07:57 05/03/18 09:00 05/03/18 10:00 Temperature 97.5 F L Pulse Rate 120 H 98 H 102 H Respiratory Rate 20 Blood Pressure 107/66 Pulse Oximetry 94 L 94 L 05/03/18 10:43 05/03/18 10:45 05/03/18 11:00 Temperature Pulse Rate 104 H 115 H Respiratory Rate 18 Blood Pressure Pulse Oximetry 93 L 05/03/18 11:34 05/03/18 12:00 Temperature 98.1 F Pulse Rate 107 H 82 Respiratory Rate 20 Blood Pressure 129/64 Pulse Oximetry 94 L GENERAL: A&O x 3 SKIN: Warm and dry. prevena dressing to chest , incision intact to left leg HEAD: Normocephalic. EYES: No scleral icterus. No injection or drainage. NECK: Supple, trachea midline. No JVD or lymphadenopathy. CARDIOVASCULAR: irregular rate and rhythm without murmurs, gallops, or rubs. RESPIRATORY: Breath sounds equal bilaterally. No accessory muscle use. coarse bilateral breath sounds , few basilar crackles GASTROINTESTINAL: Abdomen soft, non-tender, nondistended. MUSCULOSKELETAL: No cyanosis, or edema. BACK: Nontender without obvious deformity. No CVA tenderness. Labs: Laboratory Results - last 12 hr 05/03/18 05/03/18 05/03/18 03:45 07:23 10:59 Sodium 133 L Potassium 4.4 Chloride 100 Carbon Dioxide 27.1 Anion Gap 6 BUN 19 H Creatinine 0.64 Estimated GFR Greater than 89 POC Glucose 130 H 189 H Random Glucose 98 Calcium 7.6 L Magnesium 2.4 Result Diagrams: 05/02/18 04:45 05/03/18 03:45 - Plan (1) Diabetes mellitus (3) S/P CABG x 3 Plan: Neuro : will add prn xanax for anxiety on [facility] CV: ASA, statin , BB , scheduled diuresis nicolasa v score 6 eliquis started low dose KEITH Resp: pulm toileting continue mucomyst nebs Nebs ezpap acapella, chest CPT wean 02 as tolerated check sputum/ add ABX GI: motility meds Endo: insulin sliding scale diabetic diet home glipizide PT/OT OOB eval [facility] at discharge (1) Diabetes mellitus Qualifiers: 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
[2018-05-03] MEDS: Montelukast 10 MG Tablet PO SCH (17:45)
[2018-05-03] MEDS: Metoprolol Tartrate 100 MG Tablet PO SCH (20:58)
[2018-05-04] MEDS: ALPRAZolam 0.25 MG Tablet PO PRN ×2 (00:12→23:57)
[2018-05-04] MEDS: Insulin NovoLOG Aspart Correctional Sugar Inj SQ SCH ×4 (09:14→21:34)
[2018-05-04] MEDS: Metoprolol Tartrate 100 MG Tablet PO SCH ×2 (09:15→21:33)
[2018-05-04] MEDS: Docusate Sodium 100 MG Capsule PO SCH ×2 (09:15→21:33)
[2018-05-04] MEDS: Lisinopril 10 MG Tablet PO SCH (09:15)
[2018-05-04] MEDS: Multivitamin/Minerals Therapeutic Tablet PO SCH (09:15)
[2018-05-04] MEDS: glipiZIDE 5 MG Tablet PO SCH ×2 (09:16→21:33)
[2018-05-04] MEDS: Polyethylene Glycol 3350 17 GM Packet PO SCH (09:16)
[2018-05-04] MEDS ORDERED: Digoxin 250 MCG Tablet PO SCH (11:00)
[2018-05-04] MEDS: RESP: Acetylcysteine 10% 4 ML Neb NEB SCH ×2 (11:13→11:14)
--- NOTE | 2018-05-04 11:14 | P.PNCV ---
- Note Subjective/Hospital Course: 82-[facility] Dr[facility] Coreas, who presented himself to the emergency room with chest pain that he has had for the last couple of days. He has had some shortness of breath with minimal exertion over the past couple of months. He has also a longstanding history of atrial fibrillation where he was diagnosed about 3 years ago. He has refused anticoagulation. Upon arrival, his EKG showed atrial fibrillation, heart rate in the 90s, T-wave inversion, anterior lateral leads. Troponin elevated at 4.5. Ruled in for a non-STEMI. His chest x-ray showed some CHF with some volume overload and was treated with Lasix IV. The patient underwent cardiac catheterization by Dr. Coreas today, which showed left main disease of 90%, proximal LAD 90, the mid distal LAD 95%, the RCA 100%. We were consulted to evaluate for coronary artery bypass grafting. The echocardiogram showed ejection fraction approximately 40% to 45% with some mild mitral regurgitation. PAST MEDICAL HISTORY: Significant for diabetes mellitus, oral medications. Chronic atrial fibrillation. Prior refusal for anticoagulation. 04/29 SURGICAL PROCEDURE 1. Emergent Clampless off-pump Coronary Artery Bypass Grafting x 3 with Left Internal Mammary Artery (RAY) to Left Anterior Descending (LAD), reverse saphenous vein graft to obtuse Marginal 2 branch of the left Circumflex artery, reverse saphenous vein graft to the distal right Coronary artery 2. Left leg Endoscopic Vein [place] 04/30 Doing well Chronic atrial fibrillation. Tachycardic this morning Will put on digoxin protocol Weaning dopamine as tolerated Maintain in ICU 05/01 pt remains in afib rate 100-120 very congested cough / difficulty expectorating add mucomyst to nebs / chest pt / OOB gentle diuresis , increase BB, consider keith in am leave in CVICU for now / wean off simple face mask 05/02 weaned down to 4 liters continue pulm toileting nebs ezpap , mucomyst gentle diuresis add keith nicolasa score of 6 add eliquis/ discussed with pt 05/03 pt coughing up thick whitish yellow sputum check sputum and start doxycycline continue nebs ezpap wean 02 , increase BB , continue diuresis for now 05/04 sputum micro noted, no growth will continue doxycycline for 7 days lungs sounds improving, still has productive cough HR still 100-110/ discussed with Dr Minor resume low dose digoxin possible dc to rehab later today Objective: Vital Signs - 24 hr 05/03/18 11:34 05/03/18 12:00 05/03/18 13:00 Temperature 98.1 F Pulse Rate 107 H 82 88 Respiratory Rate 20 Blood Pressure 129/64 Pulse Oximetry 94 L 05/03/18 14:00 05/03/18 15:00 05/03/18 15:20 Temperature 97.6 F Pulse Rate 90 90 90 Respiratory Rate 20 Blood Pressure 101/59 L Pulse Oximetry 94 L 97 05/03/18 16:00 05/03/18 17:00 05/03/18 17:59 Temperature Pulse Rate 98 H 103 H Respiratory Rate Blood Pressure Pulse Oximetry 95 05/03/18 18:00 05/03/18 19:00 05/03/18 20:00 Temperature 97.8 F Pulse Rate 111 H 113 H 114 H Respiratory Rate 18 Blood Pressure 99/60 L Pulse Oximetry 94 L 05/03/18 21:00 05/03/18 21:18 05/03/18 22:00 Temperature Pulse Rate 120 H 98 H Respiratory Rate Blood Pressure Pulse Oximetry 92 L 05/03/18 23:00 05/04/18 00:00 05/04/18 01:00 Temperature 97.7 F Pulse Rate 94 H 91 H 94 H Respiratory Rate 18 Blood Pressure 105/58 L Pulse Oximetry 94 L 94 L 05/04/18 02:00 05/04/18 03:00 05/04/18 04:00 Temperature 97.6 F Pulse Rate 94 H 107 H 91 H Respiratory Rate 18 Blood Pressure 103/60 Pulse Oximetry 95 05/04/18 05:00 05/04/18 05:54 05/04/18 07:00 Temperature Pulse Rate 88 116 H 120 H Respiratory Rate Blood Pressure Pulse Oximetry 05/04/18 08:00 05/04/18 09:00 05/04/18 09:04 Temperature 97.8 F Pulse Rate 118 H 103 H Respiratory Rate 19 Blood Pressure 100/61 Pulse Oximetry 94 L 93 L 05/04/18 10:00 Temperature Pulse Rate 101 H Respiratory Rate Blood Pressure Pulse Oximetry GENERAL: A&O x 3 SKIN: Warm and dry. prevena dressing to chest , incision intact to left leg HEAD: Normocephalic. EYES: No scleral icterus. No injection or drainage. NECK: Supple, trachea midline. No JVD or lymphadenopathy. CARDIOVASCULAR: irregular rate and rhythm without murmurs, gallops, or rubs. mild edema left leg RESPIRATORY: Breath sounds equal bilaterally. No accessory muscle use. few coarse breath sounds, improving GASTROINTESTINAL: Abdomen soft, non-tender, nondistended. MUSCULOSKELETAL: No cyanosis, or edema. BACK: Nontender without obvious deformity. No CVA tenderness. 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
[2018-05-04] MEDS: Montelukast 10 MG Tablet PO SCH (18:15)
[2018-05-05] MEDS: Insulin NovoLOG Aspart Correctional Sugar Inj SQ SCH (08:47)
[2018-05-05] MEDS: Docusate Sodium 100 MG Capsule PO SCH (08:53)
[2018-05-05] MEDS: ALPRAZolam 0.25 MG Tablet PO PRN (08:53)
[2018-05-05] MEDS: Multivitamin/Minerals Therapeutic Tablet PO SCH (08:54)
[2018-05-05] MEDS: Metoprolol Tartrate 100 MG Tablet PO SCH (08:54)
[2018-05-05] MEDS: Lisinopril 10 MG Tablet PO SCH (08:55)
[2018-05-05] MEDS: Polyethylene Glycol 3350 17 GM Packet PO SCH (08:56)
[2018-05-05] MEDS: glipiZIDE 5 MG Tablet PO SCH (08:56)
[2018-05-05] MEDS ORDERED: Digoxin 125 MCG Tablet PO SCH (09:00)
[2018-05-05] MEDS ORDERED: Furosemide 40 MG Tablet PO SCH (09:00)
[2018-05-05 09:09] VITALS: BP 114/71; RESP 20; TEMP 98.3; O2SAT 98
[2018-05-05 10:40] VITALS: PULSE 104
== END 2018-05-05 11:17 | DRG 234 ==
LOC: NEPE 20:39 → NEDA 22:27 → HCIS 23:19 → HCPC 04-28 19:00 → HCVI 04-29 12:35 → HCPC 05-02 13:35
PROVIDERS: ADMIT Thoracic Surgery (Cardiothoracic Vascular Surgery); ATTEND Thoracic Surgery (Cardiothoracic Vascular Surgery)
CPT/HCPCS: 36430; 71010; 71045; 80048; 80053; 80061; 80162; 81001; 82040; 82272; 82948; 82962; 83036; 83735; 84100; 84439; 84443; 84484; 85014; 85025; 85027; 85610; 85730; 86850; 86900; 86901; 86923; 87070; 87205; 87641; 90774; 90775; 90784; 92526; 92610; 93005; 93306; 93312; 93318; 93454; 93880; 93965; 93970; 93998; 94002; 94010; 94150; 94640; 94651; 94656; 94664; 94665; 94667; 94668; 96374; 96375; 97110; 97162; 97166; 97168; 97530; 97535; 99152; 99153; 99291; C1768; C1769; C1893; C8952; G0195; J0131; J0360; J0690; J1160; J1200; J1265; J1644; J1815; J1885; J1940; J2001; J2250; J2270; J2370; J2440; J2765; J2930; J3010; J3370; J3480; J7040; P9016; P9045; Q9967